=== PATIENT | male | born 1970 | race Caucasian/White ===

== ENCOUNTER → 2018-05-18 11:03 | Outpatient (CLI) | payer SELFPAY, OTHER ==
[2018-05-16 11:30] VITALS: BMI 28.6
--- NOTE | 2018-05-18 11:22 | CT_ITS ---
STUDY: CT CHEST WITHOUT CONTRAST REASON FOR EXAM: Male, 47 years old. Family history of coronary artery disease. This is an over read examination. RADIATION DOSAGE (If Supplied By Facility): CTDIvol = ( 12.19 ) mGy, DLP = ( 219.42 ) mGycm TECHNIQUE: Transaxial imaging was performed without the administration of intravenous contrast material. Individualized dose optimization techniques were used for this CT. COMPARISON: None. FINDINGS: The lungs are normal. There is no demonstrated pleural abnormality. Normal heart and pericardium. There are multiple small lymph nodes within the mediastinum, which are normal in size and morphology most compatible with reactive lymph hyperplasia. Normal hilar regions. Normal unenhanced pulmonary arteries. Normal aorta arch and descending thoracic aorta. Normal osseous structures. Small hiatal hernia. CT/Limited Chest CT w/CCTA IMPRESSION: Normal unenhanced CT Chest examination. Electronically Signed: Bj Goodson MD at 14:51 EST Tel [phone], Service support ,
[2018-05-18 11:27] VITALS: BP 114/74; PULSE 55; RESP 16; O2SAT 96; BMI 28.6
--- NOTE | 2018-05-18 11:55 | CA.SCORE ---
Calcium Scoring Date of Study:: 05/18/18 Coronary Calcium Scoring: Coronary calcium scoring. High-resolution computed tomographic imaging of the chest was performed on 05/18/2018 with particular attention paid to the coronary arteries. Images from the examination were analyzed for the presence and extent of coronary artery calcification using the coronary calcium quantification software. The patient tolerated the procedure well and there were no complications. The results of the coronary calcification analysis are provided below. Left main coronary artery score 0 Left anterior descending artery score 0. Left circumflex artery score 0. Right coronary artery score 0. Total calcium score 0. Conclusion: The above is indicative of a very low risk of coronary artery disease.
== END ==
PROVIDERS: Referring Provider Internal Medicine Cardiovascular Disease; Visit Provider Internal Medicine Cardiovascular Disease
DX: Z82.49 Family history of ischemic heart disease and other diseases of the circulatory system (principal)
CPT/HCPCS: 75571; 76380

== ENCOUNTER 2022-03-13 17:35 | Inpatient (IN) | payer OTHER, SELFPAY ==
[2022-03-13] VITALS (12 sets, daily range): BP systolic 107–135; BP diastolic 65–84; PULSE 56–80; RESP 14–20; TEMP 37.2–39; O2SAT 94–98; BMI 27.7; BMI 27.9
--- NOTE | 2022-03-13 17:56 | CT_ITS ---
We are attempting to reach an attending provider to discuss findings. An addendum with communication details will be sent when the communication is complete. STUDY: CT HEAD STROKE PROTOCOL W/O CONTRAST INJECTION INDICATION: headache EXAMINATION: CT BRAIN - CT Head Stroke Protocol W/O Contrast Injection TECHNIQUE: Multiple axial images were obtained of the head without intravenous contrast. A radiation dose optimization technique was used for this scan. IV Contrast dosage and agent: None. Radiation Dose (provided by facility) CTDIvol (NA ) mGy, DLP ( NA) mGy-cm COMPARISON: Not available FINDINGS: HEMISPHERES: 1. The cerebral parenchyma, ventricular system, subarachnoid spaces have normal configuration and density. There is a normal gyral pattern. There is normal alvarez/white differentiation. No midline shift.. 2. The hemispheric white matter has normal appearance. 3. No intraparenchymal mass, hemorrhage, or acute territorial infarct. CEREBELLUM - BRAINSTEM: The cerebellum, brainstem, basilar and suprasellar cisterns have normal appearance. No Chiari malformation. PITUITARY: There is a partial empty sella, no evidence of sellar or suprasellar masses.. Midline structures have normal appearance. VESSELS: 1. No significant vascular calcifications in the cavernous carotid vessels. 2. No hyperdense vascular signs noted.. ORBITS AND PARANASAL SINUSES: 1. Normal appearance of the bony orbits. Normal appearance of the globes and retrobulbar soft tissues.. 2. Paranasal sinuses are clear. BONY ELEMENTS: Bony elements of the cranial vault, facial skeleton and skull base have normal appearance. SCALP AND SOFT TISSUES: Normal appearance of the soft tissues of the scalp and the visualized face OTHER: None CT/STROKE Brain/Head without Cont IMPRESSION: 1. Normal CT examination of the head. 2. No intracranial mass, hemorrhage or acute territorial infarct. 3. Incidental note of a partial empty sella. 4. No radiographically significant sinus disease. NSC (nonstandard communication) notification was initiated at 5:44 PM CDT Electronically Signed: Gary Madera MD at 18:47 EDT ,
[2022-03-13] MEDS: Acetaminophen 500 MG Tablet 1000 MG PO (18:05)
--- NOTE | 2022-03-13 18:10 | EX.ED.DYSGE1 ---
HPI <CHI Meediros - Last Filed: 03/13/22 20:24> History of Present Illness Chief Complaint: Fever Narrative Narrative: 51-year-old male with no significant past medical history presents with fever and altered mental status. His brother provides history. Patient is in town visiting their mother and on Monday he started complaining of a fever and headache. He been sleeping upstairs most of the weekend. This afternoon his mom noticed he was disoriented. Patient can tell me his name and where he is. He can state that his headache is generalized on the top of his head. He has no neck pain. He denies other complaints. His brother states he does not have chronic health problems and only takes testosterone shots. PFSH <CHI Medeiros - Last Filed: 03/13/22 20:24> PENDING SALE TO [facility] Medical History Family history of coronary artery disease Klinefelter syndrome Home Medications testosterone cypionate 200 mg/mL intramuscular kit 300 mg IM Q2W 05/16/18 [History Last Taken Unknown] Allergy/AdvReac Type Severity Reaction Status Date / Time No Known Allergies Allergy Unverified 05/16/18 10:57 Family History Mother CAD (coronary artery disease) Grandfather CAD (coronary artery disease) Grandmother CAD (coronary artery disease) Surgical History History of right knee surgery Social History (Updated 03/13/22 @ 21:[address] Bart Rausch MD) Smoking Status: Former smoker alcohol intake: current alcohol intake frequency: holidays/special occasions only Alcohol type: wine ROS <CHI Medeiros - Last Filed: 03/13/22 20:24> ROS ED ROS Narrative Constitutional: Positive for fever, malaise. Eyes: Negative for visual change. ENT: Negative for sore throat, ear pain, rhinorrhea. CVS: Negative for palpitations, chest pain, syncope. Respiratory: Negative for shortness of breath, cough, orthopnea. GI: Negative for abdominal pain, nausea, vomiting, diarrhea, constipation, melena, hematochezia. : Negative for dysuria, hematuria or frequency. Neuro: Positive for headache, motor/sensory dysfunction. Skin: Negative for rash, abscess, or wound. Musc: Negative for joint pain, swelling, trauma. Heme: Negative for easy bruising, bleeding, lymphadenopathy. EXAM <CHI Medeiros - Last Filed: 03/13/22 20:24> Physical Exam Narrative Exam Narrative: CONST: Patient sitting in no acute distress. EYES: Normal inspection. PERRLA, EOMI. ENT: Normal inspection, moist mucous membranes. NECK: Normal inspection. Full range of motion, negative Brudzinski and Kernig's. RESP: No respiratory distress, CTAB. CVS: Regular rate and rhythm, no murmur, no gallop. ABD: Soft and nontender, no guarding or rebound, nondistended. SKIN: Color normal, no rash, warm, dry, intact. EXTREMITIES: Normal appearance, no pedal edema. NEURO: Can state his name and that he is at the hospital. Otherwise disoriented. Follows commands, moving all extremities with normal strength. PSYCH: Normal affect. Const Vital Signs: 03/13/22 17:36 03/13/22 17:50 03/13/22 18:20 Temperature 102.2 F H Temperature Source Oral Pulse Rate 80 Respiratory Rate 20 H Respiratory Effort Normal Non-Labored Respiratory Pattern Normal Blood Pressure 127/84 H Blood Pressure Mean 98 Pulse Ox 98 Oxygen Delivery Method Room Air Room Air 03/13/22 18:38 03/13/22 18:46 03/13/22 19:04 Temperature 101.2 F H 101.2 F H Temperature Source Temporal Temporal Pulse Rate 78 78 Respiratory Rate 16 16 Respiratory Effort Respiratory Pattern Blood Pressure 127/77 H 127/77 H 130/83 H Blood Pressure Mean 93 93 98 Pulse Ox 98 98 Oxygen Delivery Method Room Air Room Air 03/13/22 19:27 03/13/22 20:07 03/13/22 21:47 Temperature 101.6 F H 99 F Temperature Source Oral Temporal Pulse Rate 60 Respiratory Rate 14 Respiratory Effort Respiratory Pattern Blood Pressure 131/80 H 135/80 H 116/65 Blood Pressure Mean 97 98 82 Pulse Ox 94 95 Oxygen Delivery Method Room Air Room Air 03/13/22 21:49 03/13/22 22:01 Temperature 99 F Temperature Source Temporal Pulse Rate 60 Respiratory Rate 14 Respiratory Effort Respiratory Pattern Blood Pressure 116/65 116/65 Blood Pressure Mean 82 82 Pulse Ox 95 Oxygen Delivery Method Room Air <Dr. Raymond Paez DO - Last Filed: 03/13/22 22:09> Physical Exam Const Vital Signs: 03/13/22 17:36 03/13/22 17:50 03/13/22 18:20 Temperature 102.2 F H Temperature Source Oral Pulse Rate 80 Respiratory Rate 20 H Respiratory Effort Normal Non-Labored Respiratory Pattern Normal Blood Pressure 127/84 H Blood Pressure Mean 98 Pulse Ox 98 Oxygen Delivery Method Room Air Room Air 03/13/22 18:38 03/13/22 18:46 03/13/22 19:04 Temperature 101.2 F H 101.2 F H Temperature Source Temporal Temporal Pulse Rate 78 78 Respiratory Rate 16 16 Respiratory Effort Respiratory Pattern Blood Pressure 127/77 H 127/77 H 130/83 H Blood Pressure Mean 93 93 98 Pulse Ox 98 98 Oxygen Delivery Method Room Air Room Air 03/13/22 19:27 03/13/22 20:07 03/13/22 21:47 Temperature 101.6 F H 99 F Temperature Source Oral Temporal Pulse Rate 60 Respiratory Rate 14 Respiratory Effort Respiratory Pattern Blood Pressure 131/80 H 135/80 H 116/65 Blood Pressure Mean 97 98 82 Pulse Ox 94 95 Oxygen Delivery Method Room Air Room Air 03/13/22 21:49 03/13/22 22:01 Temperature 99 F Temperature Source Temporal Pulse Rate 60 Respiratory Rate 14 Respiratory Effort Respiratory Pattern Blood Pressure 116/65 116/65 Blood Pressure Mean 82 82 Pulse Ox 95 Oxygen Delivery Method Room Air [facility] <CHI Medeiros - Last Filed: 03/13/22 20:24> [facility] Narrative Medical decision making narrative: Patient has 3 days of fever and headache and today family noted altered mental status of unknown onset. He appears well and nontoxic. He is febrile at 102.2F with otherwise normal vital signs. He is alert and oriented to self and place but cannot answer other questions. He can follow commands and has no neurological deficits. Exam remarkable for dry mucous membranes. Neck is supple with negative Kernig and Brudzinski's. Heart is regular, lungs clear, abdomen soft and nontender. Labs show normal white count of 5.9. He is hemoconcentrated at 18.5 and has a creatinine of 1.44 likely secondary to dehydration. EKG is normal with no hyperkalemic changes. He also has a mild elevation of his total bilirubin and AST but no abdominal pain or vomiting. CXR shows no acute process and COVID-19 test is negative. Due to headache and altered mental status a CT brain was obtained and shows no acute findings. He was treated with IV fluids and Tylenol and Motrin. LP will be obtained prior to admission per hospitalist request. Lab Data Attestation: I reviewed the patient's lab results. Labs: Laboratory Results - last 24 hr 03/13/22 03/13/22 03/13/22 18:17 18:17 18:17 WBC 5.9 RBC 5.94 Hgb 18.5 H* Hct 55.2 H MCV 92.9 MCH 31.1 MCHC 33.5 RDW Std Deviation 43.2 RDW Coeff of Abby 12.6 Plt Count 151 MPV 9.0 Immature Gran % (Auto) 0.300 Neut % (Auto) 71.7 H Lymph % (Auto) 16.7 L Shasta % (Auto) 10.8 H Eos % (Auto) 0.2 Baso % (Auto) 0.3 Absolute Neuts (auto) 4.3 Absolute Lymphs (auto) 0.99 Nucleated RBC % 0 PT 13.8 INR 1.1 APTT 33.9 Sodium 135 L Potassium 5.5 H Chloride 100 Carbon Dioxide 28.0 Anion Gap 7 BUN 16 Creatinine 1.44 H Estim Creat Clear Calc 67.82 Est GFR (MDRD) Af Amer 66 Est GFR (MDRD) Non-Af 55 L BUN/Creatinine Ratio 11.1 Glucose 110 H Lactic Acid Calcium 9.5 Total Bilirubin 1.50 H AST 52 H ALT 44 Alkaline Phosphatase 90 Total Protein 8.4 H Albumin 4.2 Globulin 4.2 Albumin/Globulin Ratio 1.0 Urine Color Urine Clarity Urine pH Ur Specific [place] Urine Protein Urine Glucose (UA) Urine Ketones Urine Occult Blood Urine Nitrite Urine Bilirubin Urine Urobilinogen Ur Leukocyte Esterase Urine RBC Urine WBC Ur Squamous Epith Cells Urine Bacteria Urine Mucus CSF Glucose 03/13/22 03/13/22 03/13/22 18:17 18:20 21:35 WBC RBC Hgb Hct MCV MCH MCHC RDW Std Deviation RDW Coeff of Abby Plt Count MPV Immature Gran % (Auto) Neut % (Auto) Lymph % (Auto) Shasta % (Auto) Eos % (Auto) Baso % (Auto) Absolute Neuts (auto) Absolute Lymphs (auto) Nucleated RBC % PT INR APTT Sodium Potassium Chloride Carbon Dioxide Anion Gap BUN Creatinine Estim Creat Clear Calc Est GFR (MDRD) Af Amer Est GFR (MDRD) Non-Af BUN/Creatinine Ratio Glucose Lactic Acid 1.3 Calcium Total Bilirubin AST ALT Alkaline Phosphatase Total Protein Albumin Globulin Albumin/Globulin Ratio Urine Color Yellow Urine Clarity Clear Urine pH 6.5 Ur Specific [place] 1.010 Urine Protein 15 H Urine Glucose (UA) Normal Urine Ketones 15 H Urine Occult Blood Negative Urine Nitrite Negative Urine Bilirubin Negative Urine Urobilinogen Normal Ur Leukocyte Esterase Negative Urine RBC 0 SEEN Urine WBC 0 SEEN Ur Squamous Epith Cells 0-5 SEEN Urine Bacteria 1+ Urine Mucus 0 SEEN CSF Glucose Cancelled Radiography Diagnostic Testing: Clinical Impression(s) from Imaging Studies Brain CT 03/13/22 17:56 IMPRESSION: 1. Normal CT examination of the head. 2. No intracranial mass, hemorrhage or acute territorial infarct. 3. Incidental note of a partial empty sella. 4. No radiographically significant sinus disease. NSC (nonstandard communication) notification was initiated at 5:44 PM CDT Electronically Signed: Gary Madera MD at 18:47 EDT , ADDENDUM: 03/13/22 1858 IMPRESSION: 1. Normal CT examination of the head. 2. No intracranial mass, hemorrhage or acute territorial infarct. 3. Incidental note of a partial empty sella. 4. No radiographically significant sinus disease. NSC (nonstandard communication) notification was initiated at 5:44 PM CDT N.B. : The above Results were Read Back by Gary Madera MD to CHI Kelly, and understanding confirmed on 03/13/2022 18:51:46 (ET). Electronically Signed: Gary Madera MD at 18:47 EDT , Chest X-Ray 03/13/22 18:32 IMPRESSION: 1. Shallow inspiration crowding of bronchovascular markings without focal infiltrate consolidation or effusion. Electronically Signed: Gary Madera MD at 19:45 EDT , <Dr. Raymond Paez, DO - Last Filed: 03/13/22 22:09> [facility] Lab Data Labs: Laboratory Results - last 24 hr 03/13/22 03/13/22 03/13/22 18:17 18:17 18:17 WBC 5.9 RBC 5.94 Hgb 18.5 H* Hct 55.2 H MCV 92.9 MCH 31.1 MCHC 33.5 RDW Std Deviation 43.2 RDW Coeff of Abby 12.6 Plt Count 151 MPV 9.0 Immature Gran % (Auto) 0.300 Neut % (Auto) 71.7 H Lymph % (Auto) 16.7 L Shasta % (Auto) 10.8 H Eos % (Auto) 0.2 Baso % (Auto) 0.3 Absolute Neuts (auto) 4.3 Absolute Lymphs (auto) 0.99 Nucleated RBC % 0 PT 13.8 INR 1.1 APTT 33.9 Sodium 135 L Potassium 5.5 H Chloride 100 Carbon Dioxide 28.0 Anion Gap 7 BUN 16 Creatinine 1.44 H Estim Creat Clear Calc 67.82 Est GFR (MDRD) Af Amer 66 Est GFR (MDRD) Non-Af 55 L BUN/Creatinine Ratio 11.1 Glucose 110 H Lactic Acid Calcium 9.5 Total Bilirubin 1.50 H AST 52 H ALT 44 Alkaline Phosphatase 90 Total Protein 8.4 H Albumin 4.2 Globulin 4.2 Albumin/Globulin Ratio 1.0 Urine Color Urine Clarity Urine pH Ur Specific [place] Urine Protein Urine Glucose (UA) Urine Ketones Urine Occult Blood Urine Nitrite Urine Bilirubin Urine Urobilinogen Ur Leukocyte Esterase Urine RBC Urine WBC Ur Squamous Epith Cells Urine Bacteria Urine Mucus CSF Glucose 03/13/22 03/13/22 03/13/22 18:17 18:20 21:35 WBC RBC Hgb Hct MCV MCH MCHC RDW Std Deviation RDW Coeff of Abby Plt Count MPV Immature Gran % (Auto) Neut % (Auto) Lymph % (Auto) Shasta % (Auto) Eos % (Auto) Baso % (Auto) Absolute Neuts (auto) Absolute Lymphs (auto) Nucleated RBC % PT INR APTT Sodium Potassium Chloride Carbon Dioxide Anion Gap BUN Creatinine Estim Creat Clear Calc Est GFR (MDRD) Af Amer Est GFR (MDRD) Non-Af BUN/Creatinine Ratio Glucose Lactic Acid 1.3 Calcium Total Bilirubin AST ALT Alkaline Phosphatase Total Protein Albumin Globulin Albumin/Globulin Ratio Urine Color Yellow Urine Clarity Clear Urine pH 6.5 Ur Specific [place] 1.010 Urine Protein 15 H Urine Glucose (UA) Normal Urine Ketones 15 H Urine Occult Blood Negative Urine Nitrite Negative Urine Bilirubin Negative Urine Urobilinogen Normal Ur Leukocyte Esterase Negative Urine RBC 0 SEEN Urine WBC 0 SEEN Ur Squamous Epith Cells 0-5 SEEN Urine Bacteria 1+ Urine Mucus 0 SEEN CSF Glucose Cancelled Radiography Diagnostic Testing: Clinical Impression(s) from Imaging Studies Brain CT 03/13/22 17:56 IMPRESSION: 1. Normal CT examination of the head. 2. No intracranial mass, hemorrhage or acute territorial infarct. 3. Incidental note of a partial empty sella. 4. No radiographically significant sinus disease. NSC (nonstandard communication) notification was initiated at 5:44 PM CDT Electronically Signed: Gary Madera MD at 18:47 EDT , ADDENDUM: 03/13/22 3935 IMPRESSION: 1. Normal CT examination of the head. 2. No intracranial mass, hemorrhage or acute territorial infarct. 3. Incidental note of a partial empty sella. 4. No radiographically significant sinus disease. NSC (nonstandard communication) notification was initiated at 5:44 PM CDT N.B. : The above Results were Read Back by Gary Madera MD to [facility], and understanding confirmed on 03/13/2022 18:51:46 (ET). Electronically Signed: Gary Madera MD at 18:47 EDT , Chest X-Ray 03/13/22 18:32 IMPRESSION: 1. Shallow inspiration crowding of bronchovascular markings without focal infiltrate consolidation or effusion. Electronically Signed: Gary Madera MD at 19:45 EDT , Treatment and Re-Evaluation Narrative: I have personally performed a face to face assessment of the patient and have reviewed the NISREEN Note. I performed a substantive portion of the visit including all aspects of the following. My mckinney findings include: History: Patient presents with altered mental status and confusion that became worse today. Patient had a fever earlier today. Patient became confused this to the day and date today. Patient is a poor informant. Exam: Vital signs are stable. Patient is febrile with a temperature of 102.2 here. Patient is in no acute distress. Patient is awake, alert, and oriented to person and place. Patient is confused on the year and month. Oral mucosa is somewhat dry. Neck is supple. Trachea is midline. There is no JVD or lymphadenopathy. Heart was regular rate and rhythm. Lungs are clear and equal bilaterally. Abdomen is soft. Bowel sounds are normal. There is no tenderness. Cranial nerves II through XII are grossly intact. There are no focal motor or sensory deficits. Medical Decision Making: Patient was given IV fluids and Tylenol here. Patient was also given ibuprofen. CBC shows a normal white blood cell count. Hemoglobin was concentrated at 18.5 and hematocrit was 55.2. Sodium was 135 and potassium was slightly elevated at 5.5. Creatinine was elevated at 1.44. Total bilirubin was slightly elevated at 1.5. AST was slightly elevated at 52. ALT and alkaline phosphatase are normal. Urinalysis does not show any evidence of urinary tract infection or hematuria. CT scan of the brain was obtained. There is no intracranial abnormality noted. This is interpreted by the radiologist and reviewed by myself. Portable 1 view chest x-ray was obtained. On my interpretation, lung fajardo show bibasilar atelectasis. There is normal cardiac silhouette. Bony thorax is normal. There is no acute process noted. Radiologist also interpreted the x-ray and agrees. Case was discussed with the hospitalist. He states that the patient needs a lumbar puncture before he will see the patient. This was performed. CSF was sent for glucose, protein, cell count and differential. CSF culture was also ordered. Patient was started on antibiotics. Patient will be admitted to the hospital. Family understands and is agreeable with the plan. All questions were answered. <Dr. Raymond Paez, DO - Last Filed: 03/13/22 22:09> Other Procedures Procedure(s): Patient was advised of the need for lumbar puncture to obtain cerebrospinal fluid. Family is agreeable with this. Patient and family were given opportunity ask questions. They had no further questions. The L4 area was prepped and draped in a sterile manner. 1% lidocaine was used to anesthetize the area. Patient was laid in the right lateral recumbent position. A 20-gauge needle was used to attempt to obtain the cerebrospinal fluid at the L4-L5 interspace. This was unsuccessful in the lateral recumbent position. Because of this, the patient was placed in a seated position and the L4-5 interspace was used. Cerebrospinal fluid was obtained. It was bloody initially. There were 4 tubes drawn with 1 cc of cerebrospinal fluid obtained. The stylet was replaced. The needle was removed. Band-Aid was applied. Patient was laid in the supine position for 30 minutes. Patient tolerated the procedure well. Discharge Plan Triage Chief Complaint: Fever ED Midlevel Provider: Vaishali Morgan ED Provider: Raymond Paez Dx/Rx/DC Orders Clinical Impression: Fever, Headache, Altered mental status, Dehydration, Acute kidney injury Prescriptions: No Action testosterone cypionate 200 mg/mL kit 300 mg IM Q2W Primary Care Provider: JUSTINO WINTER Referrals: [facility] Doctor,Out of [Non-Staff] - Disposition Disposition: Acute Care [facility]
[2022-03-13] MEDS: 0.9% Normal Saline 1,000 ML 999 ML IV ×2 (18:19→19:19)
[2022-03-13 18:29] LABS: Absolute Lymphocyte Count 0.99 X10^3/uL (0.83-4.51); Absolute Neutrophil Count 4.3 X10^3/uL (2.0-7.7); Basophil# 0.02 X10^3/uL; Basophil% 0.3 % (0-1); Eosinophil# 0.01 X10^3/uL; Eosinophils% 0.2 % (0-5); Hematocrit 55.2 % (40-54); Lymphocyte # 0.99 X10^3/ul (0.83-4.51); Lymphocyte % 16.7 % (19-41); Mean Corp Hgb Conc 33.5 g/dL (32-36); Mean Corpuscular Hgb 31.1 pg (27.0-32.0); Mean Corpuscular Volume 92.9 fL (80-94); Monocyte# 0.64 X10^3/uL; Monocyte% 10.8 % (0-10); NRBC Flagged by Analyzer 0 % (0-5); Neutrophil # 4.25 X10^3/uL (2.7-7.7); Neutrophil % 71.7 % (47-70); Platelet Count 151 K/mm3 (150-450); RBC Distribution Width CV 12.6 % (11.6-14.6); RBC Distribution Width SD 43.2 fl (35.1-43.9); Red Blood Count 5.94 M/mm3 (4.6-6.2); White Blood Count 5.9 K/mm3 (4.4-11.0)
--- NOTE | 2022-03-13 18:32 | RAD_ITS ---
INDICATION: altered mental status EXAMINATION/TECHNIQUE: X-RAY - XR Chest 1 View COMPARISON: None. FINDINGS: LIFE-SUPPORT AND LINES: 1. None HEART AND VESSELS: The cardiac silhouette, pulmonary vasculature have normal appearance. No evidence of congestive failure. LUNGS AND PLEURAL SPACES: Shallow inspiration and crowding of bronchovascular markings. No focal infiltrate or consolidation. No pulmonary mass is noted. MEDIASTINUM AND HILAR REGIONS: No masses adenopathy noted. No areas of calcification. Visualized upper airway is normal in position. BONY ELEMENTS: No acute bony changes noted. RAD/Chest 1 View (Portable) IMPRESSION: 1. Shallow inspiration crowding of bronchovascular markings without focal infiltrate consolidation or effusion. Electronically Signed: Gary Madera MD at 19:45 EDT ,
[2022-03-13 18:37] LABS: International Normalized Ratio 1.1; Prothrombin Time (Protime)PT. 13.8 SECONDS (11.7-14.9)
[2022-03-13 18:38] LABS: Partial Thromboplast Time 33.9 Seconds (24.1-36.2)
[2022-03-13 18:50] LABS: Hemoglobin 18.5 g/dL (13.0-16.5)
[2022-03-13 19:10] LABS: AST(SGOT) 52 U/L (15-37); Alanine Aminotransfer ALT/SGPT 44 U/L (16-61); Albumin, Serum 4.2 g/dL (3.2-5.0); Alkaline Phosphatase 90 U/L (45-117); Anion Gap 7 (5-15); BUN 16 mg/dL (7-18); BUN/Creat Ratio 11.1 RATIO (10-20); Calcium,Total 9.5 mg/dL (8.5-10.1); Chloride 100 mmol/L (98-107); Creatinine, Serum 1.44 mg/dL (0.70-1.30); EST Glomerular Filtration Rate 55 mL/min (>60); Est Glom Filt Rate - Afr Amer 66 mL/min (>60); Estimated Creatinine Clearance 67.82 ml/min; Globulin 4.2 g/dL (2.2-4.2); Glucose 110 mg/dL (74-106); Potassium 5.5 mmol/L (3.5-5.1); Protein, Total 8.4 g/dL (6.4-8.2); Sodium Level 135 mmol/L (136-145)
[2022-03-13 19:11] LABS: Lactic Acid 1.3 mmol/L (0.4-1.9)
--- NOTE | 2022-03-13 19:13 | EKG12_ITS ---
Test Reason : FEVER Blood Pressure : / mmHG Vent. Rate : 075 BPM Atrial Rate : 075 BPM P-R Int : 150 ms QRS Dur : 078 ms QT Int : 332 ms P-R-T Axes : -04 042 004 degrees QTc Int : 370 ms Normal sinus rhythm Nonspecific T wave abnormality Abnormal ECG Confirmed by JUAN FREGOSO, CL ([id number]), story editor FÁTIMA CLOUD ([id number]) on 03/14/2022 10:53:04 AM Referred By: Confirmed By:CL MARTINEZ MD
[2022-03-13 19:30] LABS: Mucous, Urine 0 SEEN /hpf (<or=2+); Red Blood Cells-Urine 0 SEEN /hpf (0-5); White Blood Cells 0 SEEN /hpf (0-5)
[2022-03-13 19:37] LABS: Color, Urine Yellow (Yellow); Glucose, Dipstick Normal (Normal); Ketone-Dipstick 15 mg/dl (Negative); Leukocyte Esterase-Dipstick Negative /ul (Negative); Nitrite-Dipstick Negative (Negative); Occult Blood-Urine Negative /ul (Negative); Protein-Dipstick 15 mg/dl (Negative); Urine Bilirubin Dipstick Negative (Negative); Urine Clarity Clear (Clear); Urine Urobilinogen Normal (Normal); Urine pH 6.5 (5.0 - 8.0)
[2022-03-13] MEDS: Ibuprofen 400 MG Tablet 800 MG PO (19:41)
[2022-03-13 19:47] LABS: Bacteria 1+ /hpf (None Seen); Squamous Epithelial Cells - UA 0-5 SEEN /hpf (0-5)
--- NOTE | 2022-03-13 21:11 | HP.PCM.HOS_ITS ---
HPI - General General Date of Admission: 03/13/22 Date of Service: 03/13/22 Chief Complaint: Headaches HPI Narrative ALBERTO FRANCIS, is a 51 M with a significant history of eosinophilic esophagitis with previous esophageal dilatation; testosterone deficiency who takes biweekly testosterone therapy presents to the emergency department with headaches. His headache is on the frontal side of his head. Patient is from [place] visiting his mother who lives in [place], [place]. Patient's headache started 4 days before presentation and it has been progressively getting worse. Associated with symptom is fever and photophobia. Of note patient had temperature of 103 Fahrenheit at home. Further he has chills and rigors. He has a little nausea. Reportedly he was lethargic and he has been sleeping all day. Patient brother who was at bedside said that the patient had altered mental status. However whilst at the ED his altered mental status improved. Importantly per patient's brother initially patient did not know the year but as time went on at the ED patient could state the year. [facility] Medical History Family history of coronary artery disease Klinefelter syndrome Home Medications testosterone cypionate 200 mg/mL intramuscular kit 300 mg IM Q2W 05/16/18 [History Last Taken Unknown] Allergy/AdvReac Type Severity Reaction Status Date / Time No Known Allergies Allergy Unverified 05/16/18 10:57 Family History Mother CAD (coronary artery disease) Grandfather CAD (coronary artery disease) Grandmother CAD (coronary artery disease) Surgical History History of right knee surgery Social History Smoking Status: Former smoker alcohol intake: current alcohol intake frequency: holidays/special occasions only Alcohol type: wine ROS ROS Narrative Pertinent positives and pertinent negatives as noted in HPI. All other systems were reviewed and are negative Vital Signs Vital Signs Vital Signs: 03/13/22 17:36 03/13/22 17:50 03/13/22 18:20 Temperature 102.2 F H Temperature Source Oral Pulse Rate 80 Respiratory Rate 20 H Respiratory Effort Normal Non-Labored Respiratory Pattern Normal Blood Pressure 127/84 H Blood Pressure Mean 98 Pulse Ox 98 Oxygen Delivery Method Room Air Room Air 03/13/22 18:38 03/13/22 18:46 03/13/22 19:04 Temperature 101.2 F H 101.2 F H Temperature Source Temporal Temporal Pulse Rate 78 78 Respiratory Rate 16 16 Respiratory Effort Respiratory Pattern Blood Pressure 127/77 H 127/77 H 130/83 H Blood Pressure Mean 93 93 98 Pulse Ox 98 98 Oxygen Delivery Method Room Air Room Air 03/13/22 19:27 03/13/22 20:07 Temperature 101.6 F H Temperature Source Oral Pulse Rate Respiratory Rate Respiratory Effort Respiratory Pattern Blood Pressure 131/80 H 135/80 H Blood Pressure Mean 97 98 Pulse Ox 94 Oxygen Delivery Method Room Air Weight Weight: 95.254 kg Body Mass Index (BMI) 27.7 Physical Exam Narrative Physical exam: General: Well-nourished, well-developed. Head: Normocephalic, atraumatic, no tenderness Eyes: Vision is grossly intact. EOMI ENT, no trauma, moist mucous membranes, no rhinorrhea Neck: Nontender, full range of motion CVS: Regular rate and rhythm. S1-S2 present. No murmur, gallop or rub. Respiratory : clear to auscultation bilaterally, chest wall nontender, no wheezing Abdomen: Soft, nontender, nondistended, normal bowel sounds, no masses : Deferred Back: Nontender, no CVA tenderness, no midline spinal tenderness, deformities, step-offs Extremities: Nontender full range of motion, no trauma Skin: Normal color, no trauma, abrasions Neuro: Lethargic. Patient knows his name. Patient knows the day, the month and the year. Psychiatry: Normal mood. Normal affect. Not depressed. Not anxious. Results Lab / Micro Data Attestation: I reviewed the patient's lab results. Result Diagrams: 03/13/22 18:17 03/13/22 18:17 Labs: Laboratory Results - last 24 hr 03/13/22 18:17: WBC 5.9, RBC 5.94, Hgb 18.5 H*, Hct 55.2 H, MCV 92.9, MCH 31.1, MCHC 33.5, RDW Std Deviation 43.2, RDW Coeff of Abby 12.6, Plt Count 151, MPV 9.0, Immature Gran % (Auto) 0.300, Neut % (Auto) 71.7 H, Lymph % (Auto) 16.7 L, [place] % (Auto) 10.8 H, Eos % (Auto) 0.2, Baso % (Auto) 0.3, Absolute Neuts (auto) 4.3, Absolute Lymphs (auto) 0.99, Nucleated RBC % 0 03/13/22 18:17: PT 13.8, INR 1.1, APTT 33.9 03/13/22 18:17: Sodium 135 L, Potassium 5.5 H, Chloride 100, Carbon Dioxide 28.0, Anion Gap 7, BUN 16, Creatinine 1.44 H, Estim Creat Clear Calc 67.82, Est GFR (MDRD) Af Amer 66, Est GFR (MDRD) Non-Af 55 L, BUN/Creatinine Ratio 11.1, Glucose 110 H, Calcium 9.5, Total Bilirubin 1.50 H, AST 52 H, ALT 44, Alkaline Phosphatase 90, Total Protein 8.4 H, Albumin 4.2, Globulin 4.2, Albumin/Globulin Ratio 1.0 03/13/22 18:17: Lactic Acid 1.3 03/13/22 18:20: Urine Color Yellow, Urine Clarity Clear, Urine pH 6.5, Ur Specific [place] 1.010, Urine Protein 15 H, Urine Glucose (UA) Normal, Urine Ketones 15 H, Urine Occult Blood Negative, Urine Nitrite Negative, Urine Bilirubin Negative, Urine Urobilinogen Normal, Ur Leukocyte Esterase Negative, Urine RBC 0 SEEN, Urine WBC 0 SEEN, Ur Squamous Epith Cells 0-5 SEEN, Urine Bacteria 1+, Urine Mucus 0 SEEN Micro: Microbiology 03/13/22 18:03 Nasal Secretion SARS-CoV-2 & FLU Antigen (Rapid) - Final Radiology Impression Brain CT 03/13/22 17:56 IMPRESSION: 1. Normal CT examination of the head. 2. No intracranial mass, hemorrhage or acute territorial infarct. 3. Incidental note of a partial empty sella. 4. No radiographically significant sinus disease. NSC (nonstandard communication) notification was initiated at 5:44 PM CDT Electronically Signed: Gayr Madera MD at 18:47 EDT , ADDENDUM: 03/13/22 1858 IMPRESSION: 1. Normal CT examination of the head. 2. No intracranial mass, hemorrhage or acute territorial infarct. 3. Incidental note of a partial empty sella. 4. No radiographically significant sinus disease. NSC (nonstandard communication) notification was initiated at 5:44 PM CDT N.B. : The above Results were Read Back by Gary Madera MD to [facility], and understanding confirmed on 03/13/2022 18:51:46 (ET). Electronically Signed: Gary Madera MD at 18:47 EDT , Chest X-Ray 03/13/22 18:32 IMPRESSION: 1. Shallow inspiration crowding of bronchovascular markings without focal infiltrate consolidation or effusion. Electronically Signed: Gary Madera MD at 19:45 EDT , Assessment & Plan Assessment/Plan (1) Encephalitis: (2) Erythrocytosis: (3) Dehydration: (4) Acute kidney injury: (5) Hyperkalemia: PLAN: Plan Acute encephalitis Brain CT was visualized and independently interpreted and agree with radiologist interpretation of no acute disease and with incidental note of a partial empty sella. Discussed with ED doctor who will obtain lumbar puncture with studies. Decadron ordered. Vancomycin, Zosyn and ampicillin ordered. Acyclovir ordered. ID consult. Elevated liver enzymes and hyperbilirubinemia. AST of 52. ALT normal. Total bilirubin of 1.50. No old records to compare with. Trend CMP. Acute hepatitis panel ordered. Erythrocytosis Likely secondary to testosterone use and dehydration from anorexia Trend CBC Hyperkalemia Potassium of 5.5 on presentation like secondary to dehydration. Fluids BUN is normal. Sodium is mildly reduced at 135. Normal saline hydration ordered. Trend BMP. Elevated creatinine Creatinine presentation was mildly elevated at 1.44. No old records in hospital system or electronic community records to compare with. IV hydration as above. Trend BMP. DVT prophylaxis: SCDs. Charges/Coding Visit Charges Inpatient E&M: 26739 Init Hosp L3
[2022-03-13 22:12] LABS: Body Fluid Mononuclear WBC # 0.075 10^3/uL; Body Fluid Mononuclear WBC % 98.6 %; Body Fluid Polynuclear WBC # 0.001 10^3/uL; Body Fluid Polynuclear WBC % 1.4 %; Total Cell Count CSF 0.077 10^3/uL; White Count, CSF 0.076 10^3/uL (0.000-0.005)
[2022-03-13 22:14] LABS: Glucose Spinal Fluid 61 mg/dL (40-75)
[2022-03-13] MEDS: 0.9% Normal Saline 1,000 ML 100 ML IV (22:52)
[2022-03-13] MEDS: 0.9% Saline Lock 10 ML Syringe IV (23:23)
[2022-03-13] MEDS: dexAMETHasone 4 MG/ML Vial IV (23:24)
[2022-03-14] VITALS (10 sets, daily range): BP systolic 114–132; BP diastolic 70–76; PULSE 65–81; RESP 15–18; TEMP 36.6–39.4; O2SAT 96–99
[2022-03-14] MEDS: 0.9% Saline Lock 10 ML Syringe IV
[2022-03-14 00:01] LABS: Appearance CSF (character) CLEAR (Clear); Auto B Fluid Analyzer BKGD Ct COUNTS W/IN LIMITS (W/IN LIMITS); Body Fluid QC Type(s) BF2Q; CSF Color COLORLESS (Colorless); RBC Count, Spinal Fluid 11 /mm-3 (None seen); Tested Tube # 4
--- NOTE | 2022-03-14 01:33 | PCM.RX.CS ---
Consult Pharmacy has been consulted to manage selected antiobiotic: Vancomycin Type of Consult: New start Prior Doses of Antibiotics Received/Current Regimen: Medications Vancomycin HCl 1,250 mg/ (Sodium Chloride) 275 mls @ 167 mls/hr IV Q12H JENNIE Discontinued Medications Vancomycin HCl 2,000 mg/ (Sodium Chloride) 540 mls @ 250 mls/hr IV X1 ONE Stop: 03/14/22 01:09 Last Admin: 03/14/22 00:14 Dose: 250 mls/hr Labs: Sodium 135 mmol/L (136-145) L 03/13/22 18:17 Potassium 5.5 mmol/L (3.5-5.1) H 03/13/22 18:17 Chloride 100 mmol/L (98-107) 03/13/22 18:17 Carbon Dioxide 28.0 mmol/L (21.0-32.0) 03/13/22 18:17 Anion Gap 7 (5-15) 03/13/22 18:17 BUN 16 mg/dL (7-18) 03/13/22 18:17 Creatinine 1.44 mg/dL (0.70-1.30) H 03/13/22 18:17 Est GFR (MDRD) Af Amer 66 mL/min (>60) 03/13/22 18:17 Est GFR (MDRD) Non-Af 55 mL/min (>60) L 03/13/22 18:17 BUN/Creatinine Ratio 11.1 RATIO (10-20) 03/13/22 18:17 Glucose 110 mg/dL (74-106) H 03/13/22 18:17 Microbiology: Microbiology 03/13/22 21:35 Csf, Spinal Fluid Gram Stain - Preliminary 03/13/22 18:03 Nasal Secretion SARS-CoV-2 & FLU Antigen (Rapid) - Final Weight used for dosin.3 kg Estimated Creatinine Clearance: 68 Goal Trough: 15-20 mcg/mL Pharmacy Plan for Drug Dosing: Pharmacy Service will continue to monitor and adjust dosing as required. Follow-Up Labs: Trough Vancomycin Labs to be done on [date and time ordered]: 03/15/22 @1138
[2022-03-14] MEDS: dexAMETHasone 4 MG/ML Vial IV ×2 (05:12→14:01)
[2022-03-14] MEDS: Acyclovir 800 MG in Dextrose 5% 250 ML 266 MG IV ×4 (05:13→22:57)
--- NOTE | 2022-03-14 05:55 | US_ITS ---
STUDY: ABDOMINAL ULTRASOUND - RIGHT UPPER QUADRANT REASON FOR VISIT: Male, 51 years old Elevated liver enzymes TECHNIQUE: Ultrasound evaluation of the right upper quadrant was performed with real-time and static alvarez-scale imaging. TECHNICAL QUALITY: Adequate. COMPARISON: None. FINDINGS: Liver: The liver measures 17.0 cm. There is increased echogenicity consistent with fatty infiltration. The bile ducts are within normal limits. There is hepatic color flow. The direction of portal flow is hepatopetal. There is no demonstrated mass lesion. Gallbladder: Normal distended gallbladder. The gallbladder wall measures 2.6 mm. There is a negative sonographic Arroyo''s sign. There is no pericholecystic fluid. There are no gallstones. Common Bile Duct (C.B.D.): The common bile duct measures 4.0 mm. Pancreas: Normal size of the head, body and tail of the pancreas. There is normal echogenicity of the pancreas. There is no demonstrated pancreatic mass or cyst. Right Kidney: Normal size of the right kidney. The right kidney measures 11.9 cm in length. Normal renal cortex. There is no demonstrated renal mass or cyst. There is no right hydronephrosis. US/Liver IMPRESSION: Fatty infiltration of the liver. Electronically Signed: Genny Leigh MD at 9:39 EDT ,
[2022-03-14 06:44] LABS: Absolute Lymphocyte Count 0.92 X10^3/uL (0.83-4.51); Absolute Neutrophil Count 4.1 X10^3/uL (2.0-7.7); Basophil# 0.03 X10^3/uL; Basophil% 0.6 % (0-1); Hemoglobin 18.8 g/dL (13.0-16.5); Lymphocyte # 0.92 X10^3/ul (0.83-4.51); Lymphocyte % 17.1 % (19-41); Mean Corp Hgb Conc 31.6 g/dL (32-36); Mean Corpuscular Hgb 31.3 pg (27.0-32.0); Mean Platelet Vol. 9.2 fl (6.2-12.0); Monocyte# 0.31 X10^3/uL; Monocyte% 5.8 % (0-10); NRBC Flagged by Analyzer 0 % (0-5); Neutrophil # 4.09 X10^3/uL (2.7-7.7); Neutrophil % 76.1 % (47-70); Platelet Count 149 K/mm3 (150-450); RBC Distribution Width CV 12.6 % (11.6-14.6); RBC Distribution Width SD 46.5 fl (35.1-43.9); Red Blood Count 6.01 M/mm3 (4.6-6.2); White Blood Count 5.4 K/mm3 (4.4-11.0)
[2022-03-14 06:46] LABS: Hematocrit 59.5 % (40-54)
[2022-03-14 06:47] LABS: Differential Indicated SCAN CRITERIA MET
[2022-03-14 07:18] LABS: ALB/GLOB Ratio 0.9 RATIO (0.9-2.4); AST(SGOT) 23 U/L (15-37); Alanine Aminotransfer ALT/SGPT 38 U/L (16-61); Albumin, Serum 3.7 g/dL (3.2-5.0); Alkaline Phosphatase 87 U/L (45-117); Anion Gap 8 (5-15); BUN 13 mg/dL (7-18); BUN/Creat Ratio 11.8 RATIO (10-20); Calcium,Total 8.9 mg/dL (8.5-10.1); Chloride 109 mmol/L (98-107); EST Glomerular Filtration Rate 75 mL/min (>60); Est Glom Filt Rate - Afr Amer 90 mL/min (>60); Estimated Creatinine Clearance 88.78 ml/min; Globulin 4.1 g/dL (2.2-4.2); Glucose 142 mg/dL (74-106); Potassium 4.7 mmol/L (3.5-5.1); Protein, Total 7.8 g/dL (6.4-8.2); Sodium Level 138 mmol/L (136-145)
[2022-03-14] MEDS: Acetaminophen 650 MG Suppository RC ×2 (08:41→22:57)
--- NOTE | 2022-03-14 08:42 | PCM.PN.HOSP ---
Subjective Subjective Follow-up for high fever, headache and altered mental status, high suspicion of meningitis. Objective Data Objective Data Vital Signs: Vital Signs Temp Pulse Resp BP Pulse Ox O2 Del Method 97.9 F 81 18 114/75 97 Room Air 03/14/22 03:50 03/14/22 06:59 03/14/22 03:50 03/14/22 03:50 03/14/22 03:50 03/14/22 03:50 Oxygen Delivery Method Room Air Weight: 211 lb 10.3 oz Body Mass Index (BMI) 27.9 Intake & Output: Intake and Output for Last 24 Hours 03/12/22 03/13/22 03/14/22 23:59 23:59 23:59 Intake Total 2055.67 / 225.67 1813 Balance 2055. / 2255.1813 Lab / Micro Data Result Diagrams: 03/14/22 06:00 03/14/22 06:00 Labs: Laboratory Results - last 24 hr 03/13/22 18:17: WBC 5.9, RBC 5.94, Hgb 18.5 H*, Hct 55.2 H, MCV 92.9, MCH 31.1, MCHC 33.5, RDW Std Deviation 43.2, RDW Coeff of Abby 12.6, Plt Count 151, MPV 9.0, Immature Gran % (Auto) 0.300, Neut % (Auto) 71.7 H, Lymph % (Auto) 16.7 L, [place] % (Auto) 10.8 H, Eos % (Auto) 0.2, Baso % (Auto) 0.3, Absolute Neuts (auto) 4.3, Absolute Lymphs (auto) 0.99, Nucleated RBC % 0 03/13/22 18:17: PT 13.8, INR 1.1, APTT 33.9 03/13/22 18:17: Sodium 135 L, Potassium 5.5 H, Chloride 100, Carbon Dioxide 28.0, Anion Gap 7, BUN 16, Creatinine 1.44 H, Estim Creat Clear Calc 67.82, Est GFR (MDRD) Af Amer 66, Est GFR (MDRD) Non-Af 55 L, BUN/Creatinine Ratio 11.1, Glucose 110 H, Calcium 9.5, Total Bilirubin 1.50 H, AST 52 H, ALT 44, Alkaline Phosphatase 90, Total Protein 8.4 H, Albumin 4.2, Globulin 4.2, Albumin/Globulin Ratio 1.0 03/13/22 18:17: Lactic Acid 1.3 03/13/22 18:20: Urine Color Yellow, Urine Clarity Clear, Urine pH 6.5, Ur Specific [place] 1.010, Urine Protein 15 H, Urine Glucose (UA) Normal, Urine Ketones 15 H, Urine Occult Blood Negative, Urine Nitrite Negative, Urine Bilirubin Negative, Urine Urobilinogen Normal, Ur Leukocyte Esterase Negative, Urine RBC 0 SEEN, Urine WBC 0 SEEN, Ur Squamous Epith Cells 0-5 SEEN, Urine Bacteria 1+, Urine Mucus 0 SEEN 03/13/22 21:35: CSF Glucose Cancelled 03/13/22 21:35: CSF Glucose 61, CSF Total Protein 75.0 H 03/13/22 21:35: Fld Polynuclear WBCs # 0.001, Fld Polynuclear WBCs % 1.4, Fluid Mononuclear WBCs 0.075, Fld Mononuclear WBCs % 98.6, CSF Appearance CLEAR, CSF Color COLORLESS, CSF WBC 0.076 H, CSF RBC 11 H, CSF Cell Count Tube # 4, CSF Total Cell Counted 0.077, CSF Comment October03/14/22 06:00: WBC 5.4, RBC 6.01, Hgb 18.8 H*, Hct 59.5 H, MCV 99.0 H D, MCH 31.3, MCHC 31.6 L D, RDW Std Deviation 46.5 H, RDW Coeff of Abby 12.6, Plt Count 149 L, MPV 9.2, Immature Gran % (Auto) 0.400, Neut % (Auto) 76.1 H, Lymph % (Auto) 17.1 L, [place] % (Auto) 5.8, Eos % (Auto) 0.0, Baso % (Auto) 0.6, Absolute Neuts (auto) 4.1, Absolute Lymphs (auto) 0.92, Nucleated RBC % 0, Diff Path Review October03/14/22 06:00: Sodium 138, Potassium 4.7, Chloride 109 H, Carbon Dioxide 21.0, Anion Gap 8, BUN 13, Creatinine 1.10, Estim Creat Clear Calc 88.78, Est GFR (MDRD) Af Amer 90, Est GFR (MDRD) Non-Af 75, BUN/Creatinine Ratio 11.8, Glucose 142 H, Calcium 8.9, Total Bilirubin 1.10 H, AST 23, ALT 38, Alkaline Phosphatase 87, Total Protein 7.8, Albumin 3.7, Globulin 4.1, Albumin/Globulin Ratio 0.9 Micro: Microbiology 03/13/22 21:35 Csf, Spinal Fluid Gram Stain - Preliminary 03/13/22 18:03 Nasal Secretion SARS-CoV-2 & FLU Antigen (Rapid) - Final Radiography Diagnostic Testing: Radiology Impression Brain CT 03/13/22 17:56 IMPRESSION: 1. Normal CT examination of the head. 2. No intracranial mass, hemorrhage or acute territorial infarct. 3. Incidental note of a partial empty sella. 4. No radiographically significant sinus disease. Chest X-Ray 03/13/22 18:32 IMPRESSION: 1. Shallow inspiration crowding of bronchovascular markings without focal infiltrate consolidation or effusion. Physical Exam Narrative Seen and examined. Detailed history taken from the patient brother near the bedside. Patient himself cannot provide history as he is confused disoriented and looks staring. The patient who lives in [place]. He is single. Last week probably around February, he drove to [place] by car through [facility] where he stayed overnight. He remained he did 100 [address] bike ride along [facility] for 2 days and then drove back to [place] probably on Monday or Monday as per brother. He came to [place] on Monday night and started having fever headache, confusion. Headache is diffuse from occipital to frontal area bilateral. Cannot describe radiation, intensity. His fever was 102.2 Fahrenheit. His brother denies prior history of neurological disease including epilepsy/seizure, stroke or neuropathy. His baseline health is good and follows PCP. Patient takes testosterone injection IM probably has history of hypogonadism Physical exam General: Awake, staring look. confused. Cannot tell his date of but not the name. Disoriented to place, person and time HEENT: Atraumatic, PERRLA, EOMI, Normocephalic Oral: No Gingival or Mucosal Lesions/ Ulcerations Neck: Supple, No JVD, Negative Carotid Bruits Lungs: Air entry diminished in bilateral lung bases. No crepitation/rhonchi Cardiovascular: Regular rate, Regular Rhythm, Normal S1, Normal S2, No murmurs Abdomen: Bowel Sounds Present, Soft, Non Tender, Non-Distended : No penile urethral discharge or scrotal tenderness. Left testis feels normal, right small. No renal angle tenderness. No suprapubic tenderness. Carotid stent about Tract symptoms . Extremities: No edema, Capillary Refill Less than 3 Seconds Skin: No rashes, No breakdown Musculoskeletal: No Tenderness to Palpation of Joints or Extremities Neurological: Tone 2/4, DTR 2/4. No hypertonia or clonus. Detailed neuro exam muscle power, sensation could not be . Psych/Mental Status: Flat affect. Assessment & Plan Assessment/Plan (1) Encephalitis: (2) Erythrocytosis: (3) Dehydration: (4) Acute kidney injury: (5) Hyperkalemia: PLAN: Plan This is a 51-year-old gentleman admitted with fever, headache and acute change in mental status with high suspicion of acute meningitis/encephalitis 1. Acute meningitis/encephalitis or meningoencephalitis: Patient is being admitted in PCU. Discussed with patient's brother present in the room and ID. ID consulted. CSF cell count and chemistry reviewed. Total protein elevated. Glucose normal. Total cell count 77, 96% lymphocytes in pattern of viral meningitis. Patient does not have a history of shingles or herpes. No rash found on exam. Patient has history of travel to [facility] and by [address] on the [facility] line. Lyme test/Borrelia in CSF and serum antibody ordered. West Nile and CHAU virus ordered. CT brain was individually reviewed and does not acute disease but incidental finding of partially empty sella. Mild elevated AST and total bilirubin probably reflection of viral disease. Repeat AST and total bilirubin normal. CSF culture, acute hepatitis panel, HSV 1 and 2, WNV and Lyme disease CSF and serum antibody titers ordered and pending. ID consult reviewed. RPR ordered. He added RMSF,,ehrlichia, HIV, syphilis, Legionella test. 2. Elevated hematocrit/erythrocytosis Likely secondary to testosterone use and dehydration from anorexia. My guess probably chronic from testosterone. Mild decrease in platelet count. Monitor CBC 3. Hyperkalemia Potassium of 5.5 on presentation like secondary to dehydration. Repeat potassium normal. Sodium 138. Creatinine is 1.44, repeat normal 1.1. Does not meet the criteria for MERLE. DVT prophylaxis: SCDs. Total time of the visit including total time spent in counseling or coordination of care, (more than 50% of the total time, spent in obtaining medical information from nurses and other ancillary care providers,explaining to the patient about labs, imaging, diagnosis and management of active complex medical conditions), discussion with clinical sales consultant, review of labs and imaging, discussion with patient's brother is 40 minutes. Charges/Coding Visit Charges Inpatient E&M: 37877 Subs Hosp L3
[2022-03-14 11:08] LABS: Lymphocytes,CSF 96 % (40 - 80); Other Cells,CSF 4 %
--- NOTE | 2022-03-14 12:40 | TELEMED_ITS ---
[facility] Tele[facility] has confirmed receipt of a request for visit. This document confirms receipt of the order initiating the consult. To find the results of the consultation, please view the patient's reports for the scanned Telemed Consult.
[2022-03-14 13:20] LABS: Pathologist Review Reviewed
[2022-03-14 13:22] LABS: Pathologist Review Reviewed
[2022-03-14 13:25] LABS: Lyme Ab Screen Interpretation REF LAB
--- NOTE | 2022-03-14 13:40 | CASEMGMT ---
ERICA MOLINA assessment: Face to Face with patient for initial transition planning/care coordination assessment. ERICA MOLINA introduced self and role at [facility], pt voices understanding and consents to assessment. Pt is lying in bed in no distress. Pt with expressive aphasia but is able to answer most questions as best as possible. Care providers, pharmacy,?and demographics verified. ? Presentation: Pt brought in by brother for fever/confusion-pt unable to answer questions Admitting dx: Acute encephalopathy PCP: Brenda Specialists: None currently Preferred Pharmacy: [facility] or [facility] Insurance: [employer] Prescription Benefit:? [employer] Living will/HPOA: unable to get answer regarding this-will attempt to check with brother when he visits LNOK: Jesse Figueroa, brother Living Arrangements: Pt lives alone in [facility] and states no concerns at home. Pt is normally independent with ADL's. Transportation: Pt drives self and states no transportation concerns. DME/HHC: Pt states no current DME or need for any further DME. Pt states no hx of HHC or SNF. Pt states no concerns with going home at time of discharge. Pt states smokes 2-3 cigars daily and occasionally drinks ETOH. Pt states no further concerns/needs. CM to follow for further testing, therapy notes, and any further discharge planning/needs. Advised pt to ask for CM if any further questions/concerns/needs arise, voices understanding Pt Goal: Home? Plan[place] ERICA MOLINA
--- NOTE | 2022-03-14 13:55 | CON.PCM.ID_ITS ---
Assessment & Plan Assessment/Plan (1) Encephalitis: PLAN: LP done 03/13 with wbc 76, 96% lymphs and elevated protein. PCRs pending. Recent trip to [facility] and [place]. Still with fever, headache, mild word finding and recall difficulty. No evidence bacterial meningitis at this point. Will stop vanc/amp/dex. Cont acyclovir, once daily ceftriaxone. Will add po doxy. CSF pcr pending. Will check serum/CSF lyme, RMSF IgM/IgG, ehrlichia, hiv, syphilis, legionella. Hgb is elevated, rbcs at upper limit of normal, and platelets are down somewhat. Will follow, thank you, d/w Dr. Tan HPI Consult Data Date of Consult: 03/14/22 HPI Narrative Reason for Consultation: meningitis HPI Narrative: ALBERTO FRANCIS, is a 51 M who presented 03/13 with headache, altered mental status, fatigue, difficult speaking. Had been on a biking trip in [place] after driving through [facility], got back around 03/07. History is limited due to his mental status, but denies any bug bites on the trip, did not see any ticks. No h/o MSM, not sexually active for a few years. On 03/09, developed progressive headache, thought it was a migraine. Came to [place] to visit his mom 03/11, was in bed the whole time with fever and worsening mental status. No neck pain. Angelina bustos to ED, LP done, admitted on vanc/amp/ceftriaxone/dex/acyclovir. Feeling ok this AM, but still fever. Additional history obtained from his brother. Full ROS performed and neg except as noted above. [facility]LY [facility] Medical History Family history of coronary artery disease Klinefelter syndrome Home Medications testosterone cypionate 200 mg/mL intramuscular kit 300 mg IM Q2W 05/16/18 [History Last Taken Unknown] Allergy/AdvReac Type Severity Reaction Status Date / Time No Known Allergies Allergy Unverified 05/16/18 10:57 Family History Mother CAD (coronary artery disease) Grandfather CAD (coronary artery disease) Grandmother CAD (coronary artery disease) Surgical History History of right knee surgery Social History Smoking Status: Former smoker alcohol intake: current alcohol intake frequency: holidays/special occasions only Alcohol type: wine Physical Exam Const Constitutional Narrative: alert, mild difficulty with word finding, slow speech. General Appearance: cooperative HEENT normocephalic and head/scalp atraumatic Eyes PERRL and EOMs intact bilaterally Neck supple and No nodes Resp normal air movement and clear to auscultation bilaterally Cardio regular rate and regular rhythm GI soft to palpation, non-tender and non-distended Extremity General Extremity: Negative for edema Skin no rashes or lesions noted Neuro CN's II-XII intact bilaterally Lab / Micro Data Attestation: I reviewed the patient's lab results. Result Diagrams: 03/14/22 06:00 03/14/22 06:00 Labs: Laboratory Results - last 24 hr 03/13/22 18:17: WBC 5.9, RBC 5.94, Hgb 18.5 H*, Hct 55.2 H, MCV 92.9, MCH 31.1, MCHC 33.5, RDW Std Deviation 43.2, RDW Coeff of Abby 12.6, Plt Count 151, MPV 9.0, Immature Gran % (Auto) 0.300, Neut % (Auto) 71.7 H, Lymph % (Auto) 16.7 L, [place] % (Auto) 10.8 H, Eos % (Auto) 0.2, Baso % (Auto) 0.3, Absolute Neuts (auto) 4.3, Absolute Lymphs (auto) 0.99, Nucleated RBC % 0 03/13/22 18:17: PT 13.8, INR 1.1, APTT 33.9 03/13/22 18:17: Sodium 135 L, Potassium 5.5 H, Chloride 100, Carbon Dioxide 28.0 , Anion Gap 7, BUN 16, Creatinine 1.44 H, Estim Creat Clear Calc 67.82, Est GFR (MDRD) Af Amer 66, Est GFR (MDRD) Non-Af 55 L, BUN/Creatinine Ratio 11.1, Glucose 110 H, Calcium 9.5, Total Bilirubin 1.50 H, AST 52 H, ALT 44, Alkaline Phosphatase 90, Total Protein 8.4 H, Albumin 4.2, Globulin 4.2, Albumin/Globulin Ratio 1.0 03/13/22 18:17: Lactic Acid 1.3 03/13/22 18:20: Urine Color Yellow, Urine Clarity Clear, Urine pH 6.5, Ur Specific [place] 1.010, Urine Protein 15 H, Urine Glucose (UA) Normal, Urine Ketones 15 H, Urine Occult Blood Negative, Urine Nitrite Negative, Urine Bilirubin Negative, Urine Urobilinogen Normal, Ur Leukocyte Esterase Negative, Urine RBC 0 SEEN, Urine WBC 0 SEEN, Ur Squamous Epith Cells 0-5 SEEN, Urine Bacteria 1+, Urine Mucus 0 SEEN 03/13/22 21:35: CSF Glucose Cancelled 03/13/22 21:35: CSF Glucose 61, CSF Total Protein 75.0 H 03/13/22 21:35: Fld Polynuclear WBCs # 0.001, Fld Polynuclear WBCs % 1.4, Fluid Mononuclear WBCs 0.075, Fld Mononuclear WBCs % 98.6, CSF Appearance CLEAR, CSF Color COLORLESS, CSF WBC 0.076 H, CSF RBC 11 H, CSF Cell Count Tube # 4, CSF Total Cell Counted 0.077, CSF Lymphocytes 96 H, CSF Other Cells 4, CSF Comment Reviewed 03/14/22 06:00: WBC 5.4, RBC 6.01, Hgb 18.8 H*, Hct 59.5 H, MCV 99.0 H D, MCH 31.3, MCHC 31.6 L D, RDW Std Deviation 46.5 H, RDW Coeff of Abby 12.6, Plt Count 149 L, MPV 9.2, Immature Gran % (Auto) 0.400, Neut % (Auto) 76.1 H, Lymph % (Auto) 17.1 L, [place] % (Auto) 5.8, Eos % (Auto) 0.0, Baso % (Auto) 0.6, Absolute Neuts (auto) 4.1, Absolute Lymphs (auto) 0.92, Nucleated RBC % 0, Diff Path Review Reviewed 03/14/22 06:00: Sodium 138, Potassium 4.7, Chloride 109 H, Carbon Dioxide 21.0, Anion Gap 8, BUN 13, Creatinine 1.10, Estim Creat Clear Calc 88.78, Est GFR (MDRD) Af Amer 90, Est GFR (MDRD) Non-Af 75, BUN/Creatinine Ratio 11.8, Glucose 142 H, Calcium 8.9, Total Bilirubin 1.10 H, AST 23, ALT 38, Alkaline Phosphatase 87, Total Protein 7.8, Albumin 3.7, Globulin 4.1, Albumin/Globulin Ratio 0.9 Micro: Microbiology 03/13/22 21:35 Csf, Spinal Fluid Gram Stain - Final 03/13/22 18:03 Nasal Secretion SARS-CoV-2 & FLU Antigen (Rapid) - Final Radiology Impression Brain CT 03/13/22 17:56 IMPRESSION: 1. Normal CT examination of the head. 2. No intracranial mass, hemorrhage or acute territorial infarct. 3. Incidental note of a partial empty sella. 4. No radiographically significant sinus disease. NSC (nonstandard communication) notification was initiated at 5:44 PM CDT Electronically Signed: Gary Madera MD at 18:47 EDT , ADDENDUM: 03/13/22 1858 IMPRESSION: 1. Normal CT examination of the head. 2. No intracranial mass, hemorrhage or acute territorial infarct. 3. Incidental note of a partial empty sella. 4. No radiographically significant sinus disease. NSC (nonstandard communication) notification was initiated at 5:44 PM CDT N.B. : The above Results were Read Back by Gary Madera MD to [facility], and understanding confirmed on 03/13/2022 18:51:46 (ET). Electronically Signed: Gary Madera MD at 18:47 EDT , Chest X-Ray 03/13/22 18:32 IMPRESSION: 1. Shallow inspiration crowding of bronchovascular markings without focal infiltrate consolidation or effusion. Electronically Signed: Gary Madera MD at 19:45 EDT , Liver Ultrasound 03/14/22 05:55 IMPRESSION: Fatty infiltration of the liver. Electronically Signed: Genny Leigh MD at 9:39 EDT ,
[2022-03-14] MEDS: 0.9% Normal Saline 1,000 ML 100 ML IV (14:11)
--- NOTE | 2022-03-14 15:05 | MRI_ITS ---
HISTORY: acute encephalopathy -- meningitis. TECHNIQUE: Multiplanar and multisequence MR images of the brain were obtained without contrast. 298 images. COMPARISON: CT prior day. FINDINGS: BRAIN PARENCHYMA: No significant signal abnormality in the brain parenchyma. No abnormal focus of restricted diffusion suggest acute infarct. No acute intracranial hemorrhage identified. CSF SPACES: Cerebral ventricles, cortical sulci, and other extra-axial CSF spaces within normal limits in size with a partially empty sella configuration incidentally noted. No significant midline shift or other mass effect.No extra-axial fluid collection. VASCULAR SYSTEM: Major intracranial flow voids are maintained. PARANASAL SINUSES AND MASTOID AIR CELLS: No significant air fluid levels. ORBITS: Symmetric contents. MRI/Brain without Contrast IMPRESSION: Unremarkable examination. No evidence for significant signal abnormality in the brain. Electronically Signed: Mona Gonzales MD at 16:10 EDT ,
[2022-03-14] MEDS: Doxycycline 100 MG CAPSULE PO ×2 (15:43→22:57)
[2022-03-14 15:50] LABS: HIV - WCH Non-Reactive (Nonreactive); Syphilis Antibodies Non-reactive
[2022-03-15] VITALS (11 sets, daily range): BP systolic 122–128; BP diastolic 72–81; PULSE 65–73; RESP 18; TEMP 36.5–37.3; O2SAT 93–97
[2022-03-15] MEDS: 0.9% Normal Saline 1,000 ML 100 ML IV ×2 (02:40→17:25)
[2022-03-15] MEDS: 0.9% Saline Lock 10 ML Syringe IV (05:25)
[2022-03-15] MEDS: Acyclovir 800 MG in Dextrose 5% 250 ML 266 MG IV ×3 (05:25→21:58)
--- NOTE | 2022-03-15 08:00 | PN.HOSP_ITS ---
Objective Data Objective Data Vital Signs: Vital Signs Temp Pulse Resp BP Pulse Ox O2 Del Method 99.1 F 65 18 128/81 H 96 Room Air 03/15/22 05:21 03/15/22 07:33 03/15/22 05:21 03/15/22 05:21 03/15/22 07:22 03/15/22 07:22 Oxygen Delivery Method Room Air Weight: 211 lb 10.3 oz Body Mass Index (BMI) 27.9 Intake & Output: Intake and Output for Last 24 Hours 03/13/22 03/14/22 03/15/22 23:59 23:59 23:59 Intake Total 2056.67 / 2256.67 4416.00 / 4416.00 1184.33 / 1184.33 Balance 2056.67 / 2256.67 4416.00 / 4416.00 1184.33 / 1184.33 Lab / Micro Data Result Diagrams: 03/14/22 06:00 03/14/22 06:00 Labs: Laboratory Results - last 24 hr 03/13/22 21:35: CSF Lymphocytes 96 H, CSF Other Cells 4, CSF Comment Reviewed 03/14/22 06:00: Diff Path Review Reviewed 03/14/22 09:34: COVID-19 (BRITANY) Not Detected 03/14/22 14:31: Syphilis Total Ab Non-reactive, HIV 1&2 Antibody Non-Reactive Micro: Microbiology 03/14/22 Unknown Urine, Clean Catch Legionella Antigen - Final 03/13/22 21:35 Csf, Spinal Fluid Gram Stain - Final 03/13/22 18:03 Nasal Secretion SARS-CoV-2 & FLU Antigen (Rapid) - Final Radiography Diagnostic Testing: Radiology Impression Liver Ultrasound 03/14/22 05:55 IMPRESSION: Fatty infiltration of the liver. Electronically Signed: Genny Leigh MD at 9:39 EDT , Brain MRI 03/14/22 15:05 IMPRESSION: Unremarkable examination. No evidence for significant signal abnormality in the brain. Electronically Signed: Mona Gonzales MD at 16:10 EDT , Physical Exam Narrative Seen and examined. Detailed history taken from the patient brother near the bedside. Patient himself cannot provide history as he is confused disoriented and looks staring. The patient who lives in [place]. He is single. Last week probably around February, he drove to [place] by car through [facility] where he stayed overnight. He remained he did 100 mile bike ride along [facility] for 2 days and then drove back to [place] probably on Monday or Monday as per brother. He came to [place] on Monday night and started having fever headache, confusion. Headache is diffuse from occipital to frontal area bilateral. Cannot describe radiation, intensity. His fever was 102.2 Fahrenheit. His brother denies prior history of neurological disease including epilepsy/seizure, stroke or neuropathy. His baseline health is good and follows PCP. Patient takes testosterone injection IM probably has history of hypogonadism Physical exam General: Awake, staring look. confused. Cannot tell his date of but not the name. Disoriented to place, person and time HEENT: Atraumatic, PERRLA, EOMI, Normocephalic Oral: No Gingival or Mucosal Lesions/ Ulcerations Neck: Supple, No JVD, Negative Carotid Bruits Lungs: Air entry diminished in bilateral lung bases. No crepitation/rhonchi Cardiovascular: Regular rate, Regular Rhythm, Normal S1, Normal S2, No murmurs Abdomen: Bowel Sounds Present, Soft, Non Tender, Non-Distended : No penile urethral discharge or scrotal tenderness. Left testis feels normal, right small. No renal angle tenderness. No suprapubic tenderness. Carotid stent about Tract symptoms . Extremities: No edema, Capillary Refill Less than 3 Seconds Skin: No rashes, No breakdown Musculoskeletal: No Tenderness to Palpation of Joints or Extremities Neurological: Tone 2/4, DTR 2/4. No hypertonia or clonus. Detailed neuro exam muscle power, sensation could not be . Psych/Mental Status: Flat affect. Assessment & Plan Assessment/Plan (1) Encephalitis: (2) Erythrocytosis: (3) Dehydration: (4) Acute kidney injury: (5) Hyperkalemia: PLAN: Plan This is a 51-year-old gentleman admitted with fever, headache and acute change in mental status with high suspicion of acute meningitis/encephalitis 1. Acute meningitis/encephalitis or meningoencephalitis: Patient is being admitted in PCU. Discussed with patient's brother present in the room and ID. ID consulted. CSF cell count and chemistry reviewed. Total protein elevated. Glucose normal. Total cell count 77, 96% lymphocytes in pattern of viral meningitis. Patient does not have a history of shingles or herpes. No rash found on exam. Patient has history of travel to [facility] and by 400 miles on the [facility] line. Lyme test/Borrelia in CSF and serum antibody ordered. West Nile and CHAU virus ordered. CT brain was individually reviewed and does not acute disease but incidental finding of partially empty sella. Mild elevated AST and total bilirubin probably reflection of viral disease. Repeat AST and total bilirubin normal. CSF culture, acute hepatitis panel other viral panels pending. 2. Elevated hematocrit/erythrocytosis Likely secondary to testosterone use and dehydration from anorexia. My guess probably chronic from testosterone. Monitor CBC 3. Hyperkalemia Potassium of 5.5 on presentation like secondary to dehydration. Repeat p otassium normal. Sodium 138. Creatinine is 1.44, repeat normal 1.1. Does not meet the criteria for MERLE. DVT prophylaxis: SCDs. Total time of the visit including total time spent in counseling or coordination of care, (more than 50% of the total time, spent in obtaining medical information from nurses and other ancillary care providers,explaining to the patient about labs, imaging, diagnosis and management of active complex medical conditions), discussion with guidance consultant, review of labs and imaging, discussion with patient's brother is 40 minutes.
[2022-03-15 08:08] LABS: HEPATITIS B SURFACE AG Negative (Negative); Hep C Antibodies <0.1 s/co ratio (0.0-0.9); Hepatitis A IgM Antibody Negative (Negative); Hepatitis B Core AB IgM Negative (Negative)
--- NOTE | 2022-03-15 08:08 | PCM.PN.HOSP ---
Subjective Subjective Follow-up for suspected encephalitis/meningitis. Objective Data Objective Data Vital Signs: Vital Signs Temp Pulse Resp BP Pulse Ox O2 Del Method 99.1 F 65 18 128/81 H 96 Room Air 03/15/22 05:21 03/15/22 07:33 03/15/22 05:21 03/15/22 05:21 03/15/22 07:22 03/15/22 07:22 Oxygen Delivery Method Room Air Weight: 211 lb 10.3 oz Body Mass Index (BMI) 27.9 Intake & Output: Intake and Output for Last 24 Hours 03/13/22 03/14/22 03/15/22 23:59 23:59 23:59 Intake Total 2056.67 / 2256.67 4416.00 / 4416.00 1184.33 / 1184.33 Balance 2056.67 / 2256.67 4416.00 / 4416.00 1184.33 / 1184.33 Lab / Micro Data Result Diagrams: 03/15/22 08:35 03/15/22 08:35 Labs: Laboratory Results - last 24 hr 03/13/22 21:35: CSF Lymphocytes 96 H, CSF Other Cells 4, CSF Comment Reviewed 03/14/22 06:00: Diff Path Review Reviewed 03/14/22 09:34: COVID-19 (BRITANY) Not Detected 03/14/22 14:31: Syphilis Total Ab Non-reactive, HIV 1&2 Antibody Non-Reactive Micro: Microbiology 03/14/22 Unknown Urine, Clean Catch Legionella Antigen - Final 03/13/22 21:35 Csf, Spinal Fluid Gram Stain - Final 03/13/22 18:03 Nasal Secretion SARS-CoV-2 & FLU Antigen (Rapid) - Final Radiography Diagnostic Testing: Radiology Impression Liver Ultrasound 03/14/22 05:55 IMPRESSION: Fatty infiltration of the liver. Electronically Signed: Genny Leigh MD at 9:39 EDT , Brain MRI 03/14/22 15:05 IMPRESSION: Unremarkable examination. No evidence for significant signal abnormality in the brain. Electronically Signed: Mona Gonzales MD at 16:10 EDT , Physical Exam Narrative Seen and examined. Patient mental status is much improved. Patient is alert, talking coherent but is still little slower than baseline. Headache resolved. Physical exam General: AAOx3. HEENT: Atraumatic, PERRLA, EOMI, Normocephalic Oral: No Gingival or Mucosal Lesions/ Ulcerations Neck: Supple, No JVD, Negative Carotid Bruits. No neck rigidity. Lungs:? Air entry diminished in bilateral lung bases.? No crepitation/rhonchi Cardiovascular: Regular rate, Regular Rhythm, Normal S1, Normal S2, No murmurs Abdomen: Bowel Sounds Present, Soft, Non Tender, Non-Distended : No penile urethral discharge or scrotal tenderness.? Left testis feels normal, right small.? No renal angle tenderness.? No suprapubic tenderness.? No dysuria Extremities: No edema, Capillary Refill Less than 3 Seconds Skin: No rashes, No breakdown Musculoskeletal: No Tenderness to Palpation of Joints or Extremities. ROM full. Neurological: Muscle strength 5/5 at major joints. Gross sensation to touch and pressure equal and symmetrical on both sides. Tone 2/4, DTR 2/4.? No hypertonia or clonus.? Psych/Mental Status: Flat affect. Assessment & Plan Assessment/Plan (1) Encephalitis: (2) Erythrocytosis: (3) Dehydration: (4) Acute kidney injury: (5) Hyperkalemia: PLAN: Plan This is a 51-year-old gentleman admitted with fever, headache and acute change in mental status with high suspicion of acute meningitis/encephalitis Last week probably around February, he drove to [place] by car through [facility] where he stayed overnight.? He remained he did 100 mile bike ride along [facility] for 2 days and then drove back to [place] probably on Monday or Monday as per brother.? Patient did not campaigning main but stopped and laid down in the grass during rest/stops. He came back to [place] on Monday night and started having fever headache, confusion.? Headache is diffuse from occipital to frontal area bilateral.? Cannot describe radiation, intensity.? His fever was 102.2 Fahrenheit.? His brother denies prior history of neurological disease including epilepsy/seizure, stroke or neuropathy.? His baseline health is good and follows PCP. Patient takes testosterone injection IM probably has history of hypogonadism 1.? Acute meningitis/encephalitis or meningoencephalitis: Patient is being admitted in PCU.? Discussed with patient's brother present in the room and ID.? ID consulted.? CSF cell count and chemistry reviewed.? Total protein elevated.? Glucose normal.? Total cell count 77, 96% lymphocytes in pattern of viral meningitis.? Patient does not have a history of shingles or herpes.? No rash found on exam.? Patient has history of [place] [facility] and [place] [address] [place] [facility] [place].? Lyme test/Borrelia in CSF and serum antibody ordered.? West Nile and CHAU virus ordered.? CT brain was individually reviewed and does not acute disease but incidental finding of partially empty sella.? Mild elevated AST and total bilirubin probably reflection of viral disease.? Repeat AST and total bilirubin normal.? CSF culture, acute hepatitis panel, HSV 1 and 2, WNV and Lyme disease CSF and serum antibody titers ordered and pending.? ID consult reviewed.? RPR ordered.? He added RMSF,,ehrlichia, HIV, syphilis, Legionella test. 03/15 HIV, Legionella and syphilis test. Other tests are pending. MRI brain unremarkable. EEG shows mild to moderate irregularities of cerebral function which may reflect toxic, metabolic, neurodegenerative, inflammatory infectious or structural abnormalities. No focal, lateralized epileptiform discharges suggestive of seizures noted. ID follow-up appreciated. Lab and imaging findings discussed with patient's [id number] in room and patient's brother over phone. 2.? Elevated hematocrit/erythrocytosis probably due to testosterone Likely secondary to testosterone use and dehydration from anorexia.? My guess probably chronic from testosterone.? Mild decrease in platelet count.? 03/15: Hematocrit on baseline. Patient has primary hypogonadism and is on testosterone IM every 2 weeks. Patient is due today but we do not have distress nontoxic therefore advised resume testosterone after discharge at home 3.? Hyperkalemia Potassium of 5.5 on presentation like secondary to dehydration.? Repeat potassium normal.? Sodium 138.? Creatinine is 1.44, repeat normal 1.1.? Does not meet the criteria for MERLE. DVT prophylaxis: SCDs. Total time of the visit including total time spent in counseling or coordination of care, (more than 50% of the total time, spent in obtaining medical information from nurses and other ancillary care providers,explaining to the patient brother and [id number] about labs, imaging, diagnosis and management of active complex medical conditions), discussion with security sales consultant, review of labs and imaging, discussion with patient's brother is? 40 minutes. Charges/Coding Visit Charges Inpatient E&M: 37706 Subs Hosp L3
[2022-03-15 08:51] LABS: Absolute Lymphocyte Count 1.64 X10^3/uL (0.83-4.51); Absolute Neutrophil Count 2.8 X10^3/uL (2.0-7.7); Basophil# 0.01 X10^3/uL; Basophil% 0.2 % (0-1); Hemoglobin 16.5 g/dL (13.0-16.5); Lymphocyte # 1.64 X10^3/ul (0.83-4.51); Lymphocyte % 32.7 % (19-41); Mean Corp Hgb Conc 34.4 g/dL (32-36); Mean Corpuscular Hgb 31.3 pg (27.0-32.0); Mean Corpuscular Volume 91.1 fL (80-94); Mean Platelet Vol. 9.3 fl (6.2-12.0); Monocyte# 0.54 X10^3/uL; Monocyte% 10.8 % (0-10); NRBC Flagged by Analyzer 0 % (0-5); Neutrophil % 55.9 % (47-70); Platelet Count 142 K/mm3 (150-450); RBC Distribution Width CV 12.4 % (11.6-14.6); RBC Distribution Width SD 41.5 fl (35.1-43.9); Red Blood Count 5.27 M/mm3 (4.6-6.2)
[2022-03-15] MEDS: Doxycycline 100 MG CAPSULE PO ×2 (08:54→21:56)
[2022-03-15 09:35] LABS: AST(SGOT) 17 U/L (15-37); Alanine Aminotransfer ALT/SGPT 34 U/L (16-61); Albumin, Serum 3.6 g/dL (3.2-5.0); Alkaline Phosphatase 65 U/L (45-117); Anion Gap 6 (5-15); BUN 15 mg/dL (7-18); BUN/Creat Ratio 12.9 RATIO (10-20); CPK Total, Creatine Kinase 56 U/L (39-308); CRP < 2.90 mg/L (0.0-3.0); Calcium,Total 8.5 mg/dL (8.5-10.1); Chloride 106 mmol/L (98-107); Creatinine, Serum 1.16 mg/dL (0.70-1.30); EST Glomerular Filtration Rate 70 mL/min (>60); Est Glom Filt Rate - Afr Amer 85 mL/min (>60); Estimated Creatinine Clearance 84.19 ml/min; Globulin 3.5 g/dL (2.2-4.2); Glucose 108 mg/dL (74-106); Potassium 3.8 mmol/L (3.5-5.1); Protein, Total 7.1 g/dL (6.4-8.2); Sodium Level 139 mmol/L (136-145)
--- NOTE | 2022-03-15 10:06 | PN.ID_ITS ---
Physical Exam Narrative Feeling better, headache resolved in past 24 hours. Fever improved. Speech better. Const alert and no apparent distress Neck supple Resp normal air movement and clear to auscultation bilaterally Cardio regular rate and regular rhythm GI soft to palpation, non-tender and non-distended Skin no rashes or lesions noted Neuro Neuro Narrative: improved word finding ability ID ID: Route of nutrition/ use of supplements: [] Nutritional Intake: [] IV Site: [] Short Catheter: [] Assessment & Plan Assessment/Plan (1) Encephalitis: PLAN: LP done 03/13 with wbc 76, 96% lymphs and elevated protein. Recent trip to [facility] and [place], denies bug bites or drinking from streams. Did not camp but did lie down in grass a few times at rest stops. Cont acyclovir, once daily ceftriaxone, po doxy. CSF pcr pending. Pending serum/CSF lyme, RMSF IgM/IgG, ehrlichia. Neg for hiv, syphilis, legionella. Headache, fever, mental status are all much improved. Will follow
[2022-03-16] VITALS (8 sets, daily range): BP systolic 118–139; BP diastolic 77–90; PULSE 60–81; RESP 16–18; TEMP 36.7–37.2; O2SAT 95–98
[2022-03-16] MEDS: 0.9% Normal Saline 1,000 ML 100 ML IV ×2 (02:23→13:06)
[2022-03-16] MEDS: Acyclovir 800 MG in Dextrose 5% 250 ML 266 MG IV ×2 (05:59→14:31)
[2022-03-16 06:44] LABS: Absolute Lymphocyte Count 1.52 X10^3/uL (0.83-4.51); Absolute Neutrophil Count 3.4 X10^3/uL (2.0-7.7); Basophil# 0.04 X10^3/uL; Basophil% 0.7 % (0-1); Eosinophil# 0.05 X10^3/uL; Eosinophils% 0.9 % (0-5); Hematocrit 48.1 % (40-54); Hemoglobin 16.5 g/dL (13.0-16.5); Lymphocyte # 1.52 X10^3/ul (0.83-4.51); Mean Corp Hgb Conc 34.3 g/dL (32-36); Mean Corpuscular Hgb 30.9 pg (27.0-32.0); Mean Corpuscular Volume 90.1 fL (80-94); Mean Platelet Vol. 9.3 fl (6.2-12.0); Monocyte# 0.39 X10^3/uL; Monocyte% 7.2 % (0-10); NRBC Flagged by Analyzer 0 % (0-5); Neutrophil # 3.39 X10^3/uL (2.7-7.7); Neutrophil % 62.6 % (47-70); POSITIVE MORPHOLOGY YES; Platelet Count 159 K/mm3 (150-450); RBC Distribution Width CV 12.4 % (11.6-14.6); RBC Distribution Width SD 41.1 fl (35.1-43.9); Red Blood Count 5.34 M/mm3 (4.6-6.2); White Blood Count 5.4 K/mm3 (4.4-11.0)
[2022-03-16 06:47] LABS: Differential Indicated SCAN CRITERIA MET
[2022-03-16 07:05] LABS: Atypical Lymphocyte 1+ %
[2022-03-16 07:33] LABS: ALB/GLOB Ratio 1.2 RATIO (0.9-2.4); AST(SGOT) 20 U/L (15-37); Alanine Aminotransfer ALT/SGPT 40 U/L (16-61); Albumin, Serum 3.9 g/dL (3.2-5.0); Alkaline Phosphatase 71 U/L (45-117); Anion Gap 7 (5-15); BUN 16 mg/dL (7-18); BUN/Creat Ratio 15.2 RATIO (10-20); Calcium,Total 8.9 mg/dL (8.5-10.1); Chloride 103 mmol/L (98-107); Creatinine, Serum 1.05 mg/dL (0.70-1.30); EST Glomerular Filtration Rate 79 mL/min (>60); Est Glom Filt Rate - Afr Amer 95 mL/min (>60); Estimated Creatinine Clearance 93.01 ml/min; Globulin 3.3 g/dL (2.2-4.2); Glucose 108 mg/dL (74-106); Potassium 3.9 mmol/L (3.5-5.1); Protein, Total 7.2 g/dL (6.4-8.2); Sodium Level 138 mmol/L (136-145)
--- NOTE | 2022-03-16 09:56 | CASEMGMT ---
This RN CM to room and pt is feeling much better. Pt still takes a moment to answer but speech is improving. Pt states does have LW/HPOA and his brother states that he is his HPOA, Jesse Figueroa. Pt states no concerns with going home at time of discharge. Per Dr. Tan, speech eval to see if recommend further therapy. CM to follow. SStaten RN CM
[2022-03-16] MEDS: Doxycycline 100 MG CAPSULE PO (09:59)
--- NOTE | 2022-03-16 11:16 | PCM.DC ---
Discharge Instructions Diet Discharge Diet: No restrictions Activity Discharge Activity: Return to Normal Activity and May Not Drive (Advised not to drive for 1 to 2 weeks until sees PCP) Weight Bearing Status: Weight bearing as tolerated Dressing / Incision Call your doctor if your incision/area has: Continuous Slow Oozing Call your doctor if you observe: Fever of 101 or Higher, Coldness, Increased Pain, Numbness or Tingling, Change in Color, Inability to urinate, Inability to have a bowel movement, Shortness of breath, Dizziness, Fainting spells, Swelling in the ankles, Chest pain, Prolonged hiccupping, Increased palpitations (irregular heartbeat), Calf discomfort and Uncontrolled pain Follow Up Care Test Results: Test results from this visit will be discussed in further detail at your follow-up appointment, if applicable. Discharge Plan Admission Admit Date/Time: 03/13/22 20:57 Primary Reason for Your Visit: Acute encephalopathy due to acute encephalitis Attending Provider: Genaro Tan Primary Care Provider: JUSTINO WINTER Consulting Providers: Trent Stewart ; Bart Rausch Discharge Orders/Prescriptions Prescriptions: New doxycycline monohydrate 100 mg Capsule 100 mg PO BID 12 Days Qty: 24 0RF valacyclovir [Valtrex] 1 gram tablet 1,000 mg PO BID Qty: 20 0RF No Action testosterone cypionate 200 mg/mL kit 300 mg IM Q2W Referrals / Follow Up: JUSTINO WINTER [Other] Trent Stewart MD [[facility] Staff - Active Staff] - Within 2 Weeks (To follow-up with the pending tests.) [facility] Doctor,Out of [Non-Staff] - Disposition Disposition (needs filled in before D/C Order can be placed): Home, Self Care
--- NOTE | 2022-03-16 13:19 | DS.PCM_ITS ---
Providers Date of Admission: 03/13/22 Date of Discharge: 03/16/22 Primary Care Physician: JUSTINO WINTER Consultations 03/13/22 22:38 Consult: Infectious Disease Routine Consulting Provider: Trent Stewart Reason for Consult: Fever;altered mental status; headache; and elevated liver enzymes EMERGENT Consult: No MD Notified: Yes Date Notified: 03/13/22 Time Notified: 21:09 Method of Notification: Answering Service Reason For Visit: ACUTE ENCEPHALOPATHY Diagnosis Discharge Diagnosis (1) Encephalitis: Status: Acute Code(s): G04.90 - Encephalitis and encephalomyelitis, unspecified (2) Erythrocytosis: Status: Acute Code(s): D75.1 - Secondary polycythemia (3) Dehydration: Status: Acute Code(s): E86.0 - Dehydration (4) Acute kidney injury: Status: Acute Code(s): N17.9 - Acute kidney failure, unspecified (5) Hyperkalemia: Status: Acute Code(s): E87.5 - Hyperkalemia Medications at Discharge Home Medications testosterone cypionate 200 mg/mL intramuscular kit 300 mg IM Q2W 05/16/18 doxycycline monohydrate 100 mg capsule 100 mg PO BID 12 days #24 caps 03/16/22 valacyclovir 1 gram tablet (Valtrex) 1,000 mg PO BID #20 tabs 03/16/22 Hospital Course Summary of Care Provided Hospital Course: This is a 51-year-old gentleman admitted with fever, headache and acute change in mental status with high suspicion of acute meningitis/encephalitis Around March 04, 2022, he drove to [place] by car through [facility] where he stayed overnight.? He remained he did 100 [place] [facility] for 2 days and then drove back to [place] probably on Monday or Monday as per brother.? Patient did not campaigning main but stopped and laid down in the grass during rest/stops. He came back to [place] on Monday night and started having fever headache, confusion.? Headache is diffuse from occipital to frontal area bilateral.? Cannot describe radiation, intensity.? His fever was 102.2 Fahrenheit.? His brother denies prior history of neurological disease including epilepsy/seizure, stroke or neuropathy.? His baseline health is good and follows PCP. Patient takes testosterone injection IM probably has history of hypogonadism 1.? Acute meningitis/encephalitis or meningoencephalitis: Patient is being admitted in PCU.? Discussed with patient's brother present in the room and ID.? ID consulted.? CSF cell count and chemistry reviewed.? Total protein elevated.? Glucose normal.? Total cell count 77, 96% lymphocytes in pattern of viral meningitis.? Patient does not have a history of shingles or herpes.? No rash found on exam.? Patient has history of travel to [facility] and [place] [facility] [place].? Lyme test/Borrelia in CSF and serum antibody ordered.? West Nile and CHAU virus ordered.? CT brain was individually reviewed and does not acute disease but incidental finding of partially empty sella.? Mild elevated AST and total bilirubin probably reflection of viral disease.? Repeat AST and total bilirubin normal.? CSF culture, acute hepatitis panel, HSV 1 and 2, WNV and Lyme disease CSF and serum antibody titers ordered and pending.? ID consult reviewed.? RPR ordered.? He added RMSF,,ehrlichia, HIV, syphilis, Legionella test. 03/15 HIV, Legionella and syphilis test are negative. Other tests are pending. MRI brain unremarkable. EEG shows mild to moderate irregularities of cerebral function which may reflect toxic, metabolic, neurodegenerative, inflammatory infectious or structural abnormalities. No focal, lateralized epileptiform discharges suggestive of seizures noted. ID follow-up appreciated. Lab and imaging findings discussed with patient's [id number] in room and patient's brother over phone. 03/16: On my exam and assessment patient mental status. Sensory speech very subtle slow in thinking of words, expression of sentences, although this has much improved. Not sure about his normal baseline. Outpatient prescription for speech therapy signed. Discussed with ID. CSF culture negative for more than 48 hours patient is discharged on doxycycline and Valtrex. 2.? Elevated hematocrit/erythrocytosis probably due to testosterone with history of Klinefelter syndrome Likely secondary to testosterone use and dehydration from anorexia.? My guess probably chronic from testosterone.? Mild decrease in platelet count.? 03/15: Hematocrit on baseline. Patient has primary hypogonadism and is on testosterone IM every 2 weeks. Patient is due today but we do not have distress nontoxic therefore advised resume testosterone after discharge at home 03/16: Patient cannot take testosterone as per schedule every 2 weeks. 3.? Hyperkalemia Potassium of 5.5 on presentation like secondary to dehydration.? Repeat potassium normal.? Sodium 138.? Creatinine is 1.44, repeat normal 1.1.? Does not meet the criteria for MERLE. 03/16 hyperkalemia resolved DVT prophylaxis: SCDs. Discharge medication reconciliation done. Discharge follow-up instructions completed. Discharge process discussed with the patient and all questions were answered to patient's satisfaction. Total time spent, exact 35 minutes on discharge meds reconciliation, examination, coordination of care with nurses and ancillary staff, review of imaging and blood test and discussion with the patient on follow-up instructions. Physical Exam Narrative Seen and examined. Patient mental status is much improved. Patient is alert, talking coherent. I think patient is at baseline. Possible subtle sensory aphasia. Headache resolved. Physical exam General: AAOx3. HEENT: Atraumatic, PERRLA, EOMI, Normocephalic Oral: No Gingival or Mucosal Lesions/ Ulcerations Neck: Supple, No JVD, Negative Carotid Bruits. No neck rigidity. Lungs:? Air entry diminished in bilateral lung bases.? No crepitation/rhonchi Cardiovascular: Regular rate, Regular Rhythm, Normal S1, Normal S2, No murmurs Abdomen: Bowel Sounds Present, Soft, Non Tender, Non-Distended : No penile urethral discharge or scrotal tenderness.? Left testis feels normal, right small.? No renal angle tenderness.? No suprapubic tenderness.? No dysuria Extremities: No edema, Capillary Refill Less than 3 Seconds Skin: No rashes, No breakdown Musculoskeletal: No Tenderness to Palpation of Joints or Extremities. ROM full. Neurological: Muscle strength 5/5 at major joints. Gross sensation to touch and pressure equal and symmetrical on both sides. Tone 2/4, DTR 2/4.? No hypertonia or clonus.? Psych/Mental Status: Flat affect. Weight / BMI Weight Weight: 211 lb 10.3 oz Body Mass Index (BMI) 27.9 ABG / Lab / Microbiology Data Result Diagrams: 03/16/22 06:10 03/16/22 06:10 Laboratory: Laboratory Results - last 24 hr 03/13/22 22:19: Hepatitis A IgM Ab Negative, Hep Bs Antigen Negative, Hep B Core IgM Ab Negative, Hepatitis C Ab (EIA) <0.1, Hep C Ab Comment Comment 03/16/22 06:10: WBC 5.4, RBC 5.34, Hgb 16.5, Hct 48.1, MCV 90.1, MCH 30.9, MCHC 34.3, RDW Std Deviation 41.1, RDW Coeff of Abby 12.4, Plt Count 159, MPV 9.3, Immature Gran % (Auto) 0.600, Neut % (Auto) 62.6, Lymph % (Auto) 28.0, [place] % (Auto) 7.2, Eos % (Auto) 0.9, Baso % (Auto) 0.7, Absolute Neuts (auto) 3.4, Absolute Lymphs (auto) 1.52, Nucleated RBC % 0, Atypical Lymphocytes 1+ 03/16/22 06:10: Sodium 138, Potassium 3.9, Chloride 103, Carbon Dioxide 28.0, Anion Gap 7, BUN 16, Creatinine 1.05, Estim Creat Clear Calc 93.01, Est GFR (MD RD) Af Amer 95, Est GFR (MDRD) Non-Af 79, BUN/Creatinine Ratio 15.2, Glucose 108 H, Calcium 8.9, Total Bilirubin 1.40 H, AST 20, ALT 40, Alkaline Phosphatase 71, Total Protein 7.2, Albumin 3.9, Globulin 3.3, Albumin/Globulin Ratio 1.2 Microbiology: Microbiology 03/13/22 18:12 Blood Culture (Wb) - No Site/Description Given Blood Culture - Preliminary No growth in 48 hours. 03/13/22 18:17 Blood Culture (Wb) - Anticubital Left Blood Culture - Preliminary No growth in 48 hours. 03/13/22 21:35 Csf, Spinal Fluid Gram Stain - Final 03/13/22 21:35 Csf, Spinal Fluid CSF Culture - Preliminary No growth in 24 hours. Final to follow. 03/13/22 18:20 Urine, Clean Catch Urine Culture - Final Mixed Gram Positive Organisms 03/14/22 Unknown Urine, Clean Catch Legionella Antigen - Final 03/13/22 18:03 Nasal Secretion SARS-CoV-2 & FLU Antigen (Rapid) - Final D/C Instructions Discharge Diet: No restrictions Weight Bearing Status: Weight bearing as tolerated Call your doctor if your incision/area has: Continuous Slow Oozing Call your doctor if you observe: Fever of 101 or Higher, Coldness, Increased Pain, Numbness or Tingling, Change in Color, Inability to urinate, Inability to have a bowel movement, Shortness of breath, Dizziness, Fainting spells, Swelling in the ankles, Chest pain, Prolonged hiccupping, Increased palpitations (irregular heartbeat), Calf discomfort and Uncontrolled pain Meaningful Use Info Meaningful Use Diagnoses (Choose all that apply): None applicable Discharge Plan Admission Admit Date/Time: 03/13/22 20:57 Primary Reason for Your Visit: Acute encephalopathy due to acute encephalitis Attending Provider: Genaro Tan Primary Care Provider: JUSTINO WINTER Consulting Providers: Trent Stewart ; Bart Rausch Discharge Orders/Prescriptions Prescriptions: New doxycycline monohydrate 100 mg Capsule 100 mg PO BID 12 Days Qty: 24 0RF valacyclovir [Valtrex] 1 gram tablet 1,000 mg PO BID Qty: 20 0RF No Action testosterone cypionate 200 mg/mL kit 300 mg IM Q2W Referrals / Follow Up: JUSTINO WINTER [Other] Trent Stewart MD [Med Staff - Active Staff] - Within 2 Weeks (To follow-up with the pending tests.) [facility] Doctor,Out of [Non-Staff] - Disposition Disposition (needs filled in before D/C Order can be placed): Home, Self Care Charges/Coding Visit Charges Inpatient E&M: 31145 Disch Hosp
--- NOTE | 2022-03-16 14:22 | PN.ID_ITS ---
Physical Exam Narrative Feeling better, speech improved, no fever. Const alert and no apparent distress Resp normal air movement and clear to auscultation bilaterally Cardio regular rate and regular rhythm GI soft to palpation, non-tender and non-distended Skin no rashes or lesions noted ID ID: Route of nutrition/ use of supplements: [] Nutritional Intake: [] IV Site: [] Short Catheter: [] Assessment & Plan Assessment/Plan (1) Encephalitis: PLAN: LP done 03/13 with wbc 76, 96% lymphs and elevated protein. Recent trip to [facility] and [place], denies bug bites or drinking from streams. Did not camp but did lie down in grass a few times at rest stops. On iv acyclovir, once daily ceftriaxone, po doxy. CSF pcr pending for HSV. Pending serum/CSF lyme, RMSF IgM/IgG, ehrlichia. Neg for hiv, syphilis, legionella. Headache, fever, mental status are all resolved. Word finding is much improved. Ok for home with po valtrex for 10 days, doxy for 12 more days. Wrote rx, d/w Dr. Tan. ID followup in 1-2 weeks. Will follow
--- NOTE | 2022-03-16 14:37 | CASEMGMT ---
Speech is recommending OP speech therapy. Per pt, he will be staying here in [place] with family until he is cleared and able to drive again. Pt and brother(per speech therapist) would both like order faxed to [email or web address] and are aware that [email or web address] will call to schedule appt. Pt/brother voice no further concerns with going home at discharge. Pt is independent in room. Pt voices no further questions/concerns/needs. [facility] CM
--- NOTE | 2022-03-16 15:41 | PHA.DC.MC ---
Pharmacy Service has performed discharge medication reconciliation and counseling for this patient. 1. DOXYCYCLINE 100MG PO BID X 12 DAYS 2. VALACYCLOVIR 1000MG BID X 10 DAYS The patient's discharge medication list was reviewed for discrepancies and discrepancies were resolved. Home Medications testosterone cypionate 200 mg/mL intramuscular kit 300 mg IM Q2W 05/16/18 doxycycline monohydrate 100 mg capsule 100 mg PO BID 12 days #24 caps 03/16/22 valacyclovir 1 gram tablet (Valtrex) 1,000 mg PO BID #20 tabs 03/16/22 The patient was counseled on the following discharge medications and changes in medications for homegoing were reviewed. The Reason for Use, instructions for use, and potential side effects were reviewed for all new medications. The patient's questions regarding all of their medications were answered. The patient was able to verbally demonstrate an understanding of their discharge medications.
[2022-03-23 16:09] LABS: Lyme IgG P18 Ab Absent (.); Lyme IgG P23 Ab Absent (.); Lyme IgG P28 Ab Absent (.); Lyme IgG P30 Ab Absent (.); Lyme IgG P39 Ab Absent (.); Lyme IgG P41 Ab Absent (.); Lyme IgG P45 Ab Absent (.); Lyme IgG P58 Ab Absent (.); Lyme IgG P66 Ab Absent (.); Lyme IgG P93 Ab Absent (.); Lyme IgM P23 Ab Absent (.); Lyme IgM P39 Ab Absent (.); Lyme IgM P41 Ab Absent (.)
[2022-03-24 15:51] LABS: Lyme IgG WB Interpretation Negative (.); Lyme IgM WB Interpretation Negative (.); Lyme Scn Total Ab w/Rflx Negative (Negative)
== END 2022-03-16 16:18 | disposition home or self-care (01) | DRG 98 ==
LOC: ED 19:40 → PCU 22:07
PROVIDERS: Internal Medicine Infectious Disease; Physician Assistant; Admitting Provider Hospitalist; Emergency Provider Emergency Medicine; Visit Provider Internal Medicine
DX: G04.90 Encephalitis and encephalomyelitis, unspecified (principal); N17.9 Acute kidney failure, unspecified; G93.49 Other encephalopathy; E86.0 Dehydration; E87.5 Hyperkalemia; D75.1 Secondary polycythemia; Z87.891 Personal history of nicotine dependence; Z82.49 Family history of ischemic heart disease and other diseases of the circulatory system; Q98.4 Klinefelter syndrome, unspecified
CPT/HCPCS: 36415; 62270; 70450; 70551; 71045; 76705; 80053; 80074; 81001; 82550; 82945; 83605; 84157; 85025; 85610; 85730; 86140; 86617; 86618; 86703; 86780; 86788; 86789; 87040; 87070; 87086; 87088; 87205; 87428; 87449; 87529; 87635; 87798; 89050; 89051; 92523; 93005; 95819; 99284; J7030; J7040; J7050; A4216; J0295; J0696; U0003; U0005